=== PATIENT | male | born 1965 | race Caucasian/White ===

== ENCOUNTER → 2018-10-04 | Outpatient (CLI) | payer OTHER ==
[~2018-10-04] MED LIST: AZIT250 PO; BACITO TP; BP MED; CEPH500 PO; CHLO25 PO; CLON.1; CLON.1 PO; CLOP75 PO; CRUTCH4 USE; DICLOFENAC SOD100 G1 TOP; DIPATR PO; FENTANYL PATCH; FOSAMAX; Flexeril5 MG PO; GABA100 PO; HYDACE5 PO; IBUP600 PO; LORA1 PO; LORA2 PO; OXYACE5T PO; OXYACE7.5T PO; OXYCODONE; POTCHL20ER PO; PRED20 PO; PROM25 PO; Prinivil10 MG PO; RANI150 PO; RXOXYACE PO; SILSUL1TC TOP; SULTRIDS PO; VITAMIN D250000 UNIT PO
[2018-10-05 13:35] LABS: Stool Occult Bld Immuno 1 Positive (NEGATIVE)
== END ==
LOC: LAB 16:35 → LAB SHORT 16:35
PROVIDERS: Nurse Practitioner Family
DX: Z12.11 Encounter for screening for malignant neoplasm of colon (principal)
CPT/HCPCS: 82274

== ENCOUNTER 2018-11-08 08:14 | Day surgery (SDC) | payer OTHER ==
[~2018-11-08] VITALS: Ht 177.8 cm; Wt 85.3 kg
[~2018-11-08 08:14] MED LIST changes: +ACET500; +Nortriptyline H75 MG PO; +PREG200 PO; +Robaxin750 MG PO; +TOPI25 PO; +TRAM50 PO
== END 2018-11-08 10:36 | disposition home or self-care (01) ==
LOC: ORSCSDS 08:14
PROVIDERS: Internal Medicine Gastroenterology
PROC: 0DBE8ZX Excision of Large Intestine, Via Natural or Artificial Opening Endoscopic, Diagnostic (ICD-10-PCS; principal; 2018-11-08 09:45)
DX: R19.5 Other fecal abnormalities (principal); Z80.0 Family history of malignant neoplasm of digestive organs; K51.20 Ulcerative (chronic) proctitis without complications; R10.9 Unspecified abdominal pain; K57.30 Diverticulosis of large intestine without perforation or abscess without bleeding; I10 Essential (primary) hypertension; Z87.891 Personal history of nicotine dependence; Z79.01 Long term (current) use of anticoagulants; Z79.899 Other long term (current) drug therapy
CPT/HCPCS: 88305; J2704; J7120

== ENCOUNTER → 2018-12-28 | Outpatient (CLI) | payer OTHER ==
[2018-12-30 14:00] LABS: Stool Occult Bld Immuno 1 Negative (NEGATIVE); Stool Occult Bld Immuno 2 Negative (NEGATIVE)
== END | disposition home or self-care (01) ==
LOC: LAB SHORT 09:52 → LAB 09:52 → LAB FUT 11-25 11:30
PROVIDERS: Internal Medicine Gastroenterology
DX: R19.5 Other fecal abnormalities (principal)
CPT/HCPCS: 82274

== ENCOUNTER → 2019-05-26 | Outpatient (CLI) | payer OTHER ==
[~2019-05-26] MED LIST changes: +Celebrex200 MG PO; +ONDA4ODT
[2019-05-26 11:33] LABS: Bilirubin, Urine Neg (Neg); Blood, Urine Neg (Neg); Glucose Qualitative, Urine Neg (Neg); Ketones, Urine Neg (Neg); Leukocyte Esterase, Urine Neg (Neg); Nitrite, Urine Neg (Neg); Protein, Urine Neg (Neg); Specific Gravity, Urine 1.005 (1.003-1.022); Urobilinogen, Urine NORM (Normal); pH, Urine 6.5 (5.0-8.0)
[2019-05-26 11:59] LABS: Appearance, Urine Clear (Clear); Color, Urine Yellow (P-Yellow)
== END | disposition home or self-care (01) ==
LOC: LAB SHORT 09:20 → LAB 09:20
PROVIDERS: Student in an Organized Health Care Education/Training Program
DX: R82.998 Other abnormal findings in urine (principal)
CPT/HCPCS: 81003

== ENCOUNTER 2019-07-25 13:41 | Day surgery (SDC) | payer OTHER ==
[~2019-07-25] VITALS: Ht 180.3 cm; Wt 86.1 kg
--- NOTE | 2019-07-25 14:47 | NUR ---
07/25/19 1447 Dorothy Zaldivar PT RESTING COMFORTABLY IN BED, SPOUSE AT BEDSIDE. CALL LIGHT WITHIN REACH. PT DENIES NEEDS AT THIS TIME. UPDATED ON POSSIBLE DELAY.
--- NOTE | 2019-07-25 16:30 | NUR ---
07/25/19 1630 Esther Linder GIVEN PO PER ORDERS. PT C/O L FOOT PAIN. ALLERGY TO HYDROCODONE LISTED IN CHART. PT STATES REACTION IS ITCHING. DR STATES OK TO GIVE THIS MEDICATION AND PT WILL USE BENADRYL DIRECTED AT HOME.
== END 2019-07-25 16:58 | disposition home or self-care (01) ==
LOC: ORSCSDS 13:41
PROVIDERS: Podiatrist Foot & Ankle Surgery
PROC: 01BG0ZZ Excision of Tibial Nerve, Open Approach (ICD-10-PCS; principal; 2019-07-25 15:00)
DX: G57.62 Lesion of plantar nerve, left lower limb (principal); I10 Essential (primary) hypertension; B19.20 Unspecified viral hepatitis C without hepatic coma; Z86.73 Personal history of transient ischemic attack (TIA), and cerebral infarction without residual deficits; Z79.01 Long term (current) use of anticoagulants; Z79.899 Other long term (current) drug therapy
CPT/HCPCS: 36415; 85610; 85730; 88304; A9270-GY; J0171; J0690; J1100; J2250; J2405; J2704; J7120

== ENCOUNTER 2020-02-22 00:25 | Day surgery (SDC) | payer OTHER ==
[~2020-02-22 00:25] MED LIST changes: +ACET500 PO; +CELECOXIB200 M1 PO; +GABA300 PO; +Voltaren100 GM
== END 2020-02-22 22:36 | disposition home or self-care (01) ==
LOC: WOUND 00:25
DX: G57.62 Lesion of plantar nerve, left lower limb (principal); T81.31XD Disruption of external operation (surgical) wound, not elsewhere classified, subsequent encounter; I73.9 Peripheral vascular disease, unspecified
CPT/HCPCS: G0463

== ENCOUNTER 2020-03-08 00:27 | Day surgery (SDC) | payer OTHER | END 2020-03-08 22:36 | disposition home or self-care (01) | LOC: WOUND 00:27 | DX: G57.62 Lesion of plantar nerve, left lower limb (principal); T81.31XD Disruption of external operation (surgical) wound, not elsewhere classified, subsequent encounter; I73.9 Peripheral vascular disease, unspecified; I10 Essential (primary) hypertension; Z79.899 Other long term (current) drug therapy ==

== ENCOUNTER 2020-03-14 00:37 | Day surgery (SDC) | payer OTHER | END 2020-03-14 22:41 | disposition home or self-care (01) | LOC: WOUND 00:37 | DX: G57.62 Lesion of plantar nerve, left lower limb (principal); T81.31XD Disruption of external operation (surgical) wound, not elsewhere classified, subsequent encounter; I73.9 Peripheral vascular disease, unspecified ==

== ENCOUNTER 2020-03-23 00:26 | Day surgery (SDC) | payer OTHER | END 2020-03-23 22:41 | disposition home or self-care (01) | LOC: WOUND 00:26 | DX: G57.62 Lesion of plantar nerve, left lower limb (principal); T81.31XD Disruption of external operation (surgical) wound, not elsewhere classified, subsequent encounter; I73.9 Peripheral vascular disease, unspecified; I10 Essential (primary) hypertension; Z79.899 Other long term (current) drug therapy | CPT/HCPCS: G0463 ==

== ENCOUNTER 2020-04-06 00:46 | Day surgery (SDC) | payer OTHER | END 2020-04-06 12:00 | disposition home or self-care (01) | LOC: WOUND 00:46 | DX: G57.62 Lesion of plantar nerve, left lower limb (principal); T81.31XD Disruption of external operation (surgical) wound, not elsewhere classified, subsequent encounter; I73.9 Peripheral vascular disease, unspecified; I10 Essential (primary) hypertension; Z79.899 Other long term (current) drug therapy ==

== ENCOUNTER 2020-04-09 13:18 | Day surgery (SDC) | payer OTHER | END 2020-04-09 22:48 | disposition home or self-care (01) | LOC: WOUND 13:18 | DX: G57.62 Lesion of plantar nerve, left lower limb (principal); T81.31XD Disruption of external operation (surgical) wound, not elsewhere classified, subsequent encounter; I73.9 Peripheral vascular disease, unspecified; I10 Essential (primary) hypertension; Z79.899 Other long term (current) drug therapy | CPT/HCPCS: G0463 ==

== ENCOUNTER 2020-04-13 00:30 | Day surgery (SDC) | payer OTHER | END 2020-04-13 23:02 | disposition home or self-care (01) | LOC: WOUND 00:30 | DX: T81.31XA Disruption of external operation (surgical) wound, not elsewhere classified, initial encounter (principal); I96 Gangrene, not elsewhere classified; I10 Essential (primary) hypertension; M81.0 Age-related osteoporosis without current pathological fracture; E55.9 Vitamin D deficiency, unspecified; F31.9 Bipolar disorder, unspecified; H40.9 Unspecified glaucoma; G47.30 Sleep apnea, unspecified; K74.60 Unspecified cirrhosis of liver; B19.20 Unspecified viral hepatitis C without hepatic coma; M10.9 Gout, unspecified; M19.90 Unspecified osteoarthritis, unspecified site; G62.9 Polyneuropathy, unspecified; Z87.891 Personal history of nicotine dependence; Z86.73 Personal history of transient ischemic attack (TIA), and cerebral infarction without residual deficits; Z88.0 Allergy status to penicillin; Z88.2 Allergy status to sulfonamides; Z88.5 Allergy status to narcotic agent; Z88.8 Allergy status to other drugs, medicaments and biological substances; Z79.02 Long term (current) use of antithrombotics/antiplatelets; Z79.899 Other long term (current) drug therapy; Y83.8 Other surgical procedures as the cause of abnormal reaction of the patient, or of later complication, without mention of misadventure at the time of the procedure; F41.9 Anxiety disorder, unspecified | CPT/HCPCS: G0463 ==

== ENCOUNTER 2020-04-19 00:46 | Day surgery (SDC) | payer OTHER | END 2020-04-19 22:53 | disposition home or self-care (01) | LOC: WOUND 00:46 | DX: G57.62 Lesion of plantar nerve, left lower limb (principal); T81.31XD Disruption of external operation (surgical) wound, not elsewhere classified, subsequent encounter; I73.9 Peripheral vascular disease, unspecified | CPT/HCPCS: G0463 ==

== ENCOUNTER 2020-04-27 01:58 | Day surgery (SDC) | payer OTHER | END 2020-04-27 22:43 | disposition home or self-care (01) | LOC: WOUND 01:58 | DX: T81.31XD Disruption of external operation (surgical) wound, not elsewhere classified, subsequent encounter (principal); G57.62 Lesion of plantar nerve, left lower limb; I73.9 Peripheral vascular disease, unspecified; I10 Essential (primary) hypertension; Z79.899 Other long term (current) drug therapy; Z79.02 Long term (current) use of antithrombotics/antiplatelets | CPT/HCPCS: G0463 ==

== ENCOUNTER 2020-05-04 02:15 | Day surgery (SDC) | payer OTHER | END 2020-05-04 22:57 | disposition home or self-care (01) | LOC: WOUND 02:15 | DX: T81.31XD Disruption of external operation (surgical) wound, not elsewhere classified, subsequent encounter (principal); G57.62 Lesion of plantar nerve, left lower limb; I73.9 Peripheral vascular disease, unspecified; I10 Essential (primary) hypertension; E55.9 Vitamin D deficiency, unspecified; Z79.899 Other long term (current) drug therapy ==

== ENCOUNTER 2020-05-11 01:14 | Day surgery (SDC) | payer OTHER | END 2020-05-11 22:58 | disposition home or self-care (01) | LOC: WOUND 01:14 | DX: T81.31XD Disruption of external operation (surgical) wound, not elsewhere classified, subsequent encounter (principal); G57.62 Lesion of plantar nerve, left lower limb; I73.9 Peripheral vascular disease, unspecified; I10 Essential (primary) hypertension; Z79.02 Long term (current) use of antithrombotics/antiplatelets; Z79.899 Other long term (current) drug therapy | CPT/HCPCS: G0463 ==

== ENCOUNTER 2020-05-15 02:03 | Day surgery (SDC) | payer OTHER | END 2020-05-15 23:09 | disposition home or self-care (01) | LOC: WOUND 02:03 | DX: T81.31XA Disruption of external operation (surgical) wound, not elsewhere classified, initial encounter (principal); L03.116 Cellulitis of left lower limb; M81.0 Age-related osteoporosis without current pathological fracture; B19.20 Unspecified viral hepatitis C without hepatic coma; E55.9 Vitamin D deficiency, unspecified; F31.9 Bipolar disorder, unspecified; Z86.73 Personal history of transient ischemic attack (TIA), and cerebral infarction without residual deficits; Z88.2 Allergy status to sulfonamides; Z88.5 Allergy status to narcotic agent; Z88.8 Allergy status to other drugs, medicaments and biological substances; Y83.8 Other surgical procedures as the cause of abnormal reaction of the patient, or of later complication, without mention of misadventure at the time of the procedure | CPT/HCPCS: 87070; 87077; 87147; 87186; 87205 ==

== ENCOUNTER 2020-05-22 00:52 | Day surgery (SDC) | payer OTHER | END 2020-05-22 23:00 | disposition home or self-care (01) | LOC: WOUND 00:52 | DX: L03.116 Cellulitis of left lower limb (principal); T81.31XD Disruption of external operation (surgical) wound, not elsewhere classified, subsequent encounter; G57.62 Lesion of plantar nerve, left lower limb; I73.9 Peripheral vascular disease, unspecified; I10 Essential (primary) hypertension; Z79.02 Long term (current) use of antithrombotics/antiplatelets; Z79.899 Other long term (current) drug therapy ==

== ENCOUNTER 2020-05-29 00:11 | Day surgery (SDC) | payer OTHER | END 2020-05-29 23:05 | disposition home or self-care (01) | LOC: WOUND 00:11 | DX: T81.31XD Disruption of external operation (surgical) wound, not elsewhere classified, subsequent encounter (principal); L03.116 Cellulitis of left lower limb; G57.62 Lesion of plantar nerve, left lower limb; I73.9 Peripheral vascular disease, unspecified; I10 Essential (primary) hypertension; M81.0 Age-related osteoporosis without current pathological fracture; E55.9 Vitamin D deficiency, unspecified; F31.9 Bipolar disorder, unspecified; H40.9 Unspecified glaucoma; G47.30 Sleep apnea, unspecified; K74.60 Unspecified cirrhosis of liver; B96.20 Unspecified Escherichia coli [E. coli] as the cause of diseases classified elsewhere; M10.9 Gout, unspecified; M19.90 Unspecified osteoarthritis, unspecified site; G62.9 Polyneuropathy, unspecified; Z87.891 Personal history of nicotine dependence; Z88.0 Allergy status to penicillin; Z88.2 Allergy status to sulfonamides; Z88.5 Allergy status to narcotic agent; Z88.8 Allergy status to other drugs, medicaments and biological substances; Z79.02 Long term (current) use of antithrombotics/antiplatelets; Z79.899 Other long term (current) drug therapy; Z86.73 Personal history of transient ischemic attack (TIA), and cerebral infarction without residual deficits; Y83.8 Other surgical procedures as the cause of abnormal reaction of the patient, or of later complication, without mention of misadventure at the time of the procedure | CPT/HCPCS: G0463 ==

== ENCOUNTER 2020-06-19 00:28 | Day surgery (SDC) | payer OTHER | END 2020-06-19 22:37 | disposition home or self-care (01) | LOC: WOUND 00:28 | DX: T81.31XD Disruption of external operation (surgical) wound, not elsewhere classified, subsequent encounter (principal); L03.116 Cellulitis of left lower limb; G57.62 Lesion of plantar nerve, left lower limb; I73.9 Peripheral vascular disease, unspecified; I10 Essential (primary) hypertension; B19.20 Unspecified viral hepatitis C without hepatic coma; M81.0 Age-related osteoporosis without current pathological fracture; E55.9 Vitamin D deficiency, unspecified; F31.9 Bipolar disorder, unspecified; H40.9 Unspecified glaucoma; G47.30 Sleep apnea, unspecified; K74.60 Unspecified cirrhosis of liver; M10.9 Gout, unspecified; M19.90 Unspecified osteoarthritis, unspecified site; G62.9 Polyneuropathy, unspecified; Z86.73 Personal history of transient ischemic attack (TIA), and cerebral infarction without residual deficits; Z79.02 Long term (current) use of antithrombotics/antiplatelets; Z79.899 Other long term (current) drug therapy; Z88.0 Allergy status to penicillin; Z88.2 Allergy status to sulfonamides; Z88.5 Allergy status to narcotic agent; Z88.8 Allergy status to other drugs, medicaments and biological substances; Y83.8 Other surgical procedures as the cause of abnormal reaction of the patient, or of later complication, without mention of misadventure at the time of the procedure | CPT/HCPCS: G0463 ==

== ENCOUNTER 2020-06-25 00:20 | Day surgery (SDC) | payer OTHER | END 2020-06-25 22:49 | disposition home or self-care (01) | LOC: WOUND 00:20 | DX: T81.31XD Disruption of external operation (surgical) wound, not elsewhere classified, subsequent encounter (principal); L03.116 Cellulitis of left lower limb; G57.62 Lesion of plantar nerve, left lower limb; I73.9 Peripheral vascular disease, unspecified; I10 Essential (primary) hypertension; M81.0 Age-related osteoporosis without current pathological fracture; E55.9 Vitamin D deficiency, unspecified; F31.9 Bipolar disorder, unspecified; H40.9 Unspecified glaucoma; G47.30 Sleep apnea, unspecified; K74.60 Unspecified cirrhosis of liver; B19.20 Unspecified viral hepatitis C without hepatic coma; M10.9 Gout, unspecified; M19.90 Unspecified osteoarthritis, unspecified site; G62.9 Polyneuropathy, unspecified; Z79.02 Long term (current) use of antithrombotics/antiplatelets; Z79.899 Other long term (current) drug therapy; Z86.73 Personal history of transient ischemic attack (TIA), and cerebral infarction without residual deficits; Z88.0 Allergy status to penicillin; Z88.2 Allergy status to sulfonamides; Z88.5 Allergy status to narcotic agent; Z88.8 Allergy status to other drugs, medicaments and biological substances; Y83.8 Other surgical procedures as the cause of abnormal reaction of the patient, or of later complication, without mention of misadventure at the time of the procedure | CPT/HCPCS: G0463 ==

== ENCOUNTER 2020-09-16 16:13 | Emergency (ER) | payer OTHER ==
[~2020-09-16] VITALS: Ht 177.8 cm; Wt 95.2 kg
[2020-09-16 16:33] LABS: BASOPHILS ABSOLUTE AUTO 0.02 K/mm3 (0.00-0.23); BASOPHILS PERCENT AUTO 1 % (0-2); EOSINOPHILS ABSOLUTE AUTO 0.16 K/mm3 (0.00-0.68); EOSINOPHILS PERCENT AUTO 4 % (0-6); Hematocrit 39.9 % (37.0-53.0); Hemoglobin 13.2 g/dL (13.5-17.5); IMMATURE GRAN ABSOLUTE AUTO 0.01 K/mm3 (0.00-0.10); IMMATURE GRAN PERCENT AUTO 0 % (0-1); LYMPHOCYTES ABSOLUTE AUTO 1.25 K/mm3 (0.84-5.20); LYMPHOCYTES PERCENT AUTO 31 % (21-46); MONOCYTES ABSOLUTE AUTO 0.36 K/mm3 (0.16-1.47); MONOCYTES PERCENT AUTO 9 % (4-13); Mean Corpuscular HGB 32.5 pg (26.0-34.0); Mean Corpuscular HGB Conc 33.1 g/dL (31.5-36.5); Mean Corpuscular Volume 98 fL (80-100); Mean Platelet Volume 9.2 fL (9.1-12.4); NEUTROPHILS ABSOLUTE AUTO 2.23 K/mm3 (1.96-9.15); NEUTROPHILS PERCENT AUTO 55 % (41-73); Platelet Count 301 K/mm3 (150-400); RDW Coefficient Variation 13.1 % (11.7-14.2); RDW Standard Deviation 46.7 fL (35.1-46.3); Red Blood Cell Count 4.06 M/mm3 (4.30-5.90); White Blood Cell Count 4.03 K/mm3 (4.00-11.30)
[2020-09-16 16:38] LABS: Source, Urine Clean Catch
[2020-09-16] MEDS ORDERED: Percocet 10-321 EACH PO (16:39)
[2020-09-16 16:44] LABS: Appearance, Urine Clear (Clear); Bilirubin, Urine Neg (Neg); Blood, Urine Neg (Neg); Color, Urine Yellow (P-Yellow); Glucose Qualitative, Urine Neg (Neg); Ketones, Urine Neg (Neg); Leukocyte Esterase, Urine Neg (Neg); Nitrite, Urine Neg (Neg); Protein, Urine Neg (Neg); Urobilinogen, Urine NORM (Normal)
[2020-09-16 16:49] LABS: Alanine Aminotransfer (ALT/SGP 37 U/L (12-78); Albumin, Blood 3.9 g/dL (3.4-5.0); Albumin/Globulin Ratio 1.1 (0.8-1.8); Alk Phos 62 U/L (50-136); Anion Gap 5 mmol/L (6-16); Aspartate Aminotrans (AST/SGOT 32 U/L (12-37); Bilirubin, Total 0.2 mg/dL (0.1-1.0); Blood Urea Nitrogen 12 mg/dL (8-24); Bun/Creatinine Ratio 18.6 (12.0-20.0); CO2, Blood 26 mmol/L (21-32); Calcium, Blood 8.6 mg/dL (8.5-10.1); Chloride, Blood 110 mmol/L (98-108); Creatinine, Blood 0.64 mg/dL (0.60-1.20); Ethanol (Alcohol), Blood, Med <3 mg/dL; Globulin, Blood 3.5 g/dL (2.2-4.0); Glomerular Filtration Rate >60 (60-); Glucose, Blood 87 mg/dL (70-99); Salicylate <1.7 mg/dL (2.8-20.0); Sodium, Blood 141 mmol/L (136-145); Total Protein, Blood 7.4 g/dL (6.4-8.2)
[2020-09-16 16:54] LABS: U Amphetamine Screen Not Detected; U Barbituate Screen Not Detected; U Benzodiazapine Screen Not Detected; U Buprenorphine Screen Not Detected; U Cannabinoids Screen Not Detected; U Cocaine Screen Not Detected; U Methadone Screen Not Detected; U Methamphetamine Screen Not Detected; U Opiates Screen Not Detected; U Oxycodone Screen DETECTED; U Phencyclidine Screen Not Detected; U Propoxyphene Screen Not Detected
[2020-09-16 16:55] LABS: Acetaminophen, Random <2.0 ug/mL (10.0-30.0)
[2021-01-28] MEDS ORDERED: GABA300 PO (08:25)
[2021-01-28] MEDS ORDERED: TRAM50 PO (08:26)
[2021-01-28] MEDS ORDERED: PREG200 PO (08:26)
== END 2020-09-16 18:41 | disposition home or self-care (01) ==
LOC: ER 16:13
PROVIDERS: Emergency Medicine
DX: R41.82 Altered mental status, unspecified (principal); I10 Essential (primary) hypertension; Z53.20 Procedure and treatment not carried out because of patient's decision for unspecified reasons; Z79.02 Long term (current) use of antithrombotics/antiplatelets; Z87.891 Personal history of nicotine dependence; Z88.2 Allergy status to sulfonamides; Z88.8 Allergy status to other drugs, medicaments and biological substances; Z79.899 Other long term (current) drug therapy
CPT/HCPCS: 70450; 80053; 81003; 85025; 93005; 93010; 96360; 96361; 99285-25; G0480; J7030

== ENCOUNTER → 2020-11-05 | Outpatient (CLI) | payer OTHER ==
[~2020-11-05] MED LIST changes: +Percocet 10-321 EACH PO
[2020-11-05 18:17] LABS: Adenovirus F 40/41 Not Detected (NOT DETECT); Astrovirus Not Detected (NOT DETECT); Campylobacter Sp Not Detected (NOT DETECT); Cryptosporidium Not Detected (NOT DETECT); Cyclospora Cayetanensis Not Detected (NOT DETECT); E. Coli O157 Not Detected (NOT DETECT); Entamoeba Histolytica Not Detected (NOT DETECT); Enteroaggregative E. coli-EAEC Not Detected (NOT DETECT); Enteropathogenic E. coli-EPEC Not Detected (NOT DETECT); Enterotoxigenic E. coli-ETEC Not Detected (NOT DETECT); Giardia Lamblia Not Detected (NOT DETECT); Norovirus GI/GII Not Detected (NOT DETECT); Plesiomonas Shigelloides Not Detected (NOT DETECT); Rotavirus A Not Detected (NOT DETECT); Salmonella Sp Not Detected (NOT DETECT); Sapovirus Not Detected (NOT DETECT); Shiga Toxin-prod E. coli-STEC Not Detected (NOT DETECT); Shigella/Enteroin E. coli-EIEC Not Detected (NOT DETECT); Vibrio Cholerae Not Detected (NOT DETECT); Vibrio Sp Not Detected (NOT DETECT); Yersinia Enterocolitica Not Detected (NOT DETECT)
[2020-11-06 09:35] LABS: Stool Occult Bld Immuno 1 Positive (NEGATIVE)
== END ==
LOC: LAB 13:30 → LAB SHORT 13:30
PROVIDERS: Student in an Organized Health Care Education/Training Program
DX: R10.32 Left lower quadrant pain (principal); R19.7 Diarrhea, unspecified
CPT/HCPCS: 0097U; 82274; 87324

== ENCOUNTER 2021-02-04 13:28 | Day surgery (SDC) | payer OTHER ==
[~2021-02-04] VITALS: Ht 180.3 cm; Wt 86.9 kg
[2021-02-04] MEDS ORDERED: OXYC10ER (13:53)
[2021-02-04] MEDS ORDERED: OXYC10TA19 PO (13:54)
== END 2021-02-04 15:39 | disposition home or self-care (01) ==
LOC: ORSCSDS 13:28
PROVIDERS: Internal Medicine Gastroenterology
PROC: 0DBP8ZX Excision of Rectum, Via Natural or Artificial Opening Endoscopic, Diagnostic (ICD-10-PCS; principal; 2021-02-04 15:00)
DX: K51.20 Ulcerative (chronic) proctitis without complications (principal)
CPT/HCPCS: 88305; J0330; J0461; J2405; J2704; J7120

== ENCOUNTER 2021-05-23 09:39 | Day surgery (SDC) | payer OTHER ==
[~2021-05-23] VITALS: Ht 177.8 cm; Wt 86.5 kg
[~2021-05-23 09:39] MED LIST changes: +OXYC10ER; +OXYC10TA19 PO
[2021-05-23] MEDS ORDERED: LATANOPROST2.5 M3 (10:23)
[2021-05-23] MEDS ORDERED: TIMO.25OPS (10:23)
[2021-05-23] MEDS ORDERED: Triamcinolone A15 G2 TOP (10:24)
[2021-05-23] MEDS ORDERED: OMEP20ER PO (10:24)
[2021-05-23] MEDS ORDERED: BISA10S PR (10:24)
[2021-05-23] MEDS ORDERED: MORP15ER PO (10:25)
--- NOTE | 2021-05-23 10:34 | NUR ---
05/23/21 1034 Meryl Kelly CALL LIGHT WITHIN REACH. EYE DROPS AT 1020 PLEDGETT AT 1022
== END 2021-05-23 11:55 | disposition home or self-care (01) ==
LOC: ORSCSDS 09:39
PROVIDERS: Ophthalmology
PROC: 08RJ3JZ Replacement of Right Lens with Synthetic Substitute, Percutaneous Approach (ICD-10-PCS; principal; 2021-05-23 11:00)
DX: H25.11 Age-related nuclear cataract, right eye (principal); K21.9 Gastro-esophageal reflux disease without esophagitis; B19.20 Unspecified viral hepatitis C without hepatic coma; Z86.73 Personal history of transient ischemic attack (TIA), and cerebral infarction without residual deficits; F31.9 Bipolar disorder, unspecified; Z79.899 Other long term (current) drug therapy
CPT/HCPCS: J2001; J2250; J3010; J3301; J7040; V2632

== ENCOUNTER 2021-06-13 09:06 | Day surgery (SDC) | payer OTHER ==
[~2021-06-13] VITALS: Ht 177.8 cm; Wt 85.2 kg
[~2021-06-13 09:06] MED LIST changes: +BISA10S PR; +LATANOPROST2.5 M3; +MORP15ER PO; +OMEP20ER PO; +TIMO.25OPS; +Triamcinolone A15 G2 TOP
--- NOTE | 2021-06-13 10:21 | NUR ---
06/13/21 1021 KAREN GRIGGS TETRACAINE DROP INSTILLED AT 1015. PLEDGETT INSERTED AT 1016
== END 2021-06-13 11:56 | disposition home or self-care (01) ==
LOC: ORSCSDS 09:06
PROVIDERS: Ophthalmology
PROC: 08RK3JZ Replacement of Left Lens with Synthetic Substitute, Percutaneous Approach (ICD-10-PCS; principal; 2021-06-13 11:00)
DX: H25.12 Age-related nuclear cataract, left eye (principal); I10 Essential (primary) hypertension; Z87.891 Personal history of nicotine dependence; Z86.73 Personal history of transient ischemic attack (TIA), and cerebral infarction without residual deficits; F31.9 Bipolar disorder, unspecified; Z79.899 Other long term (current) drug therapy; Z79.02 Long term (current) use of antithrombotics/antiplatelets
CPT/HCPCS: J2001; J2250; J3010; J3301; J7040; V2632

== ENCOUNTER → 2022-04-14 | Outpatient (CLI) | payer OTHER ==
[2022-04-18 01:09] LABS: COPPER/CRT RATIO 150 (0-49)
== END | disposition home or self-care (01) ==
LOC: LAB 12:23 → LAB SHORT 12:23 → LAB FUT 12-19 14:55 → EDSTATUS 12-19 14:55
PROVIDERS: Psychiatry & Neurology Neurology
DX: G25.5 Other chorea (principal); F09 Unspecified mental disorder due to known physiological condition
CPT/HCPCS: 81050; 82175; 82525; 82570; 83655; 83825

== ENCOUNTER → 2022-05-01 | Outpatient (CLI) | payer OTHER | END | disposition home or self-care (01) | LOC: LAB SHORT 16:00 → LAB 16:00 | DX: J15.9 Unspecified bacterial pneumonia (principal) | CPT/HCPCS: 87070; 87077; 87186; 87205 ==

== ENCOUNTER → 2022-05-15 | Outpatient (CLI) | payer OTHER ==
[~2022-05-15] MED LIST changes: +ALBU90OI; +BISM300CH; +DOC250; +MESA250ER; +PANT20; +TOPI100
[2022-05-16 13:28] LABS: Adenovirus F 40/41 Not Detected (NOT DETECT); Astrovirus Not Detected (NOT DETECT); Campylobacter Sp Not Detected (NOT DETECT); Cryptosporidium Not Detected (NOT DETECT); Cyclospora Cayetanensis Not Detected (NOT DETECT); E. Coli O157 Not Detected (NOT DETECT); Entamoeba Histolytica Not Detected (NOT DETECT); Enteroaggregative E. coli-EAEC Not Detected (NOT DETECT); Enteropathogenic E. coli-EPEC Not Detected (NOT DETECT); Enterotoxigenic E. coli-ETEC Not Detected (NOT DETECT); Giardia Lamblia Not Detected (NOT DETECT); Norovirus GI/GII Not Detected (NOT DETECT); Plesiomonas Shigelloides Not Detected (NOT DETECT); Rotavirus A Not Detected (NOT DETECT); Salmonella Sp Not Detected (NOT DETECT); Sapovirus Not Detected (NOT DETECT); Shiga Toxin-prod E. coli-STEC Not Detected (NOT DETECT); Shigella/Enteroin E. coli-EIEC Not Detected (NOT DETECT); Vibrio Cholerae Not Detected (NOT DETECT); Vibrio Sp Not Detected (NOT DETECT); Yersinia Enterocolitica Not Detected (NOT DETECT)
== END | disposition home or self-care (01) ==
LOC: LAB SHORT 10:52 → LAB 10:52 → LAB FUT 05-12 10:25
PROVIDERS: Internal Medicine Gastroenterology
DX: R19.7 Diarrhea, unspecified (principal)
CPT/HCPCS: 87507

== ENCOUNTER 2023-12-11 06:31 | Inpatient (IN) | payer OTHER ==
[2023-12-11] VITALS (41 sets, daily range): BP systolic 88–135; BP diastolic 65–92
[~2023-12-11] VITALS: Ht 182.9 cm; Wt 77.8 kg
[~2023-12-11 06:31] MED LIST changes: -BISM300CH; -DOC250; +DOC250 PO; -OXYC10ER; -PANT20; +PANT20 PO; +PEPTO-BISMOL T262 M2 PO; -TOPI100; +TOPI50 PO
[2023-12-11] MEDS ORDERED: LORazepam 2 MG/ML 1ML Injection IV ONE ×5 (07:05→21:00)
[2023-12-11 07:10] LABS: BASOPHILS ABSOLUTE AUTO 0.03 K/mm3 (0.00-0.23); BASOPHILS PERCENT AUTO 1 % (0-2); EOSINOPHILS PERCENT AUTO 0 % (0-6); Hematocrit 39.3 % (37.0-53.0); Hemoglobin 13.2 g/dL (13.5-17.5); IMMATURE GRAN ABSOLUTE AUTO 0.03 K/mm3 (0.00-0.10); IMMATURE GRAN PERCENT AUTO 1 % (0-1); LYMPHOCYTES ABSOLUTE AUTO 0.51 K/mm3 (0.84-5.20); LYMPHOCYTES PERCENT AUTO 8 % (21-46); MONOCYTES PERCENT AUTO 6 % (4-13); Mean Corpuscular HGB 34.8 pg (26.0-34.0); Mean Corpuscular HGB Conc 33.6 g/dL (31.5-36.5); Mean Corpuscular Volume 104 fL (80-100); Mean Platelet Volume 9.2 fL (9.1-12.4); NEUTROPHILS PERCENT AUTO 85 % (41-73); Platelet Count 147 K/mm3 (150-400); RDW Coefficient Variation 13.3 % (11.7-14.2); RDW Standard Deviation 50.4 fL (35.1-46.3); Red Blood Cell Count 3.79 M/mm3 (4.30-5.90); White Blood Cell Count 6.47 K/mm3 (4.00-11.30)
[2023-12-11] MEDS ORDERED: NS 1,000 ML IV SCH (07:15)
[2023-12-11 07:31] LABS: Alanine Aminotransfer (ALT/SGP 117 U/L (12-78); Albumin, Blood 3.8 g/dL (3.4-5.0); Alk Phos 85 U/L (50-136); Anion Gap 16 mmol/L (3-11); Aspartate Aminotrans (AST/SGOT 114 U/L (12-37); Blood Urea Nitrogen 15 mg/dL (8-24); Bun/Creatinine Ratio 21.5 (12.0-20.0); CO2, Blood 23 mmol/L (21-32); Calcium, Blood 9.6 mg/dL (8.5-10.1); Chloride, Blood 103 mmol/L (98-108); Ethanol (Alcohol), Blood, Med <3 mg/dL; Glomerular Filtration Rate 105 (60-); Glucose, Blood 197 mg/dL (70-99); Potassium, Blood 3.7 mmol/L (3.5-5.5); Sodium, Blood 138 mmol/L (136-145); Total Protein, Blood 7.8 g/dL (6.4-8.2)
[2023-12-11] MEDS ORDERED: PHENobarbital Sodium 65MG / ML 1ML Vial IV ONE ×2 (07:35→10:00)
[2023-12-11] MEDS ORDERED: propofoL 100 ML IV SCH (09:20)
[2023-12-11] MEDS ORDERED: SuccINYLCHOLINE Chloride 20 MG/ML 10ML Injection IV ONE (09:25)
[2023-12-11] MEDS ORDERED: PROPOFOL IV ONE (09:30)
[2023-12-11] MEDS ORDERED: PHENobarbitaL sodium 130 MG/ML VIAL IV ONE (10:10)
[2023-12-11 11:17] LABS: U Amphetamine Screen Not Detected; U Barbituate Screen DETECTED; U Benzodiazapine Screen DETECTED; U Buprenorphine Screen Not Detected; U Cannabinoids Screen Not Detected; U Cocaine Screen Not Detected; U Methadone Screen Not Detected; U Methamphetamine Screen Not Detected; U Opiates Screen Not Detected; U Oxycodone Screen Not Detected; U Phencyclidine Screen Not Detected
[2023-12-11] MEDS ORDERED: Acetaminophen 650 MG Supp PR PRN (11:35)
[2023-12-11] MEDS ORDERED: Lactated Ringer's 1,000 ML IV SCH ×2 (11:35→14:20)
[2023-12-11] MEDS ORDERED: Folic Acid 1 MG in NS 50 ML IV SCH (12:00)
[2023-12-11] MEDS ORDERED: Thiamine HCl 100 MG in NS 50 ML IV SCH (12:00)
[2023-12-11] MEDS ORDERED: LORazepam 2 MG/ML 1ML Injection IV PRN (14:15)
[2023-12-11] MEDS ORDERED: Potassium Phosphate Dibasic 30 MM in Dextrose 5% 500 ML IV STA (14:18)
[2023-12-11] MEDS ORDERED: Hydrogen Peroxide 1.5 % Solution MT SCH (16:00)
--- NOTE | 2023-12-11 18:52 | NUR ---
SHIFT SUMMARY PT ARRIVED FROM ER VIA GURNEY AT 1255. INTUBATED AND SEDATED, PROPOFOL INFUSING. SR, BP WNL. VENT AC/VC 16/400/5/35%. LUNGS CLEAR, DIMINISHED LEFT SIDE. OGT CLAMPED. SEN TO GRAVITY, PATENT AND DRAINING CLEAR YELLOW URINE. SKIN WITH BRUISING TO RIGHT KNEE AND FOOT, RIGHT GREAT TOE FX NOTED ON XRAY. PIV X2, PROPOFOL INFUSING. POTASSIUM AND PHOS BEING REPLACED. UPDATED VIA PHONE. ALL QUESTIONS ANSWERED. DR. HERNANDEZ TO BEDSIDE AFTER PULM CONSULT PLACED. POC ONGOING.
[2023-12-11] MEDS ORDERED: Sodium Phosphate 20 MM in Dextrose 5% 500 ML IV SCH (19:30)
[2023-12-11] MEDS ORDERED: Cetylpyridinium Chloride 1 EA MISC MT SCH (20:00)
[2023-12-11 20:08] LABS: Source, Urine Foley catheter
[2023-12-11 20:12] LABS: Appearance, Urine Clear (Clear); Bilirubin, Urine Neg (Neg); Blood, Urine 3+ (Neg); Color, Urine Amber (P-Yellow); Glucose Qualitative, Urine Neg (Neg); Ketones, Urine Neg (Neg); Leukocyte Esterase, Urine Neg (Neg); Nitrite, Urine Neg (Neg); Protein, Urine 2+ (Neg); Specific Gravity, Urine 1.015 (1.003-1.022); Urobilinogen, Urine NORM (Normal)
[2023-12-11 20:19] LABS: Squamous Epithelial Cells Rare /hpf (Few); White Blood Cells, Urine 0-2 /hpf (0-5)
[2023-12-11 20:20] LABS: Bacteria Mod /hpf
[2023-12-12] VITALS (86 sets, daily range): BP systolic 95–121; BP diastolic 73–105
[2023-12-12 03:31] LABS: BASOPHILS ABSOLUTE AUTO 0.03 K/mm3 (0.00-0.23); BASOPHILS PERCENT AUTO 1 % (0-2); EOSINOPHILS ABSOLUTE AUTO 0.12 K/mm3 (0.00-0.68); EOSINOPHILS PERCENT AUTO 2 % (0-6); Hematocrit 36.6 % (37.0-53.0); IMMATURE GRAN ABSOLUTE AUTO 0.02 K/mm3 (0.00-0.10); IMMATURE GRAN PERCENT AUTO 0 % (0-1); LYMPHOCYTES ABSOLUTE AUTO 0.79 K/mm3 (0.84-5.20); LYMPHOCYTES PERCENT AUTO 16 % (21-46); MONOCYTES ABSOLUTE AUTO 0.33 K/mm3 (0.16-1.47); MONOCYTES PERCENT AUTO 7 % (4-13); Mean Corpuscular HGB 34.5 pg (26.0-34.0); Mean Corpuscular HGB Conc 32.8 g/dL (31.5-36.5); Mean Corpuscular Volume 105 fL (80-100); Mean Platelet Volume 9.5 fL (9.1-12.4); NEUTROPHILS ABSOLUTE AUTO 3.73 K/mm3 (1.96-9.15); NEUTROPHILS PERCENT AUTO 74 % (41-73); Platelet Count 127 K/mm3 (150-400); RDW Coefficient Variation 13.2 % (11.7-14.2); RDW Standard Deviation 50.9 fL (35.1-46.3); Red Blood Cell Count 3.48 M/mm3 (4.30-5.90); White Blood Cell Count 5.02 K/mm3 (4.00-11.30)
[2023-12-12 03:53] LABS: Magnesium, Blood 2.5 mg/dL (1.6-2.4)
[2023-12-12 04:07] LABS: Albumin, Blood 3.1 g/dL (3.4-5.0); Albumin/Globulin Ratio 0.9 (0.8-1.8); Bilirubin, Total 1.4 mg/dL (0.1-1.0); Bun/Creatinine Ratio 13.9 (12.0-20.0); Calcium, Blood 8.6 mg/dL (8.5-10.1); Creatinine, Blood 0.72 mg/dL (0.60-1.20); Globulin, Blood 3.4 g/dL (2.2-4.0); Potassium, Blood 2.8 mmol/L (3.5-5.5); Total Protein, Blood 6.5 g/dL (6.4-8.2)
[2023-12-12 04:13] LABS: Phosphorus, Blood 5.2 mg/dL (2.5-4.9)
[2023-12-12] MEDS ORDERED: Potassium Chloride 40 MEQ in NS 250 ML IV ONE (04:50)
--- NOTE | 2023-12-12 05:35 | NUR ---
SHIFT SUMMERY PT REMAINS INTUBATED W/ETT INTACT AND PATENT TO THE VENT. OXYGEN SAT >90% W/NO EPISODES OF RESP DISTRESS OVERNIGHT. MINIMAL SECRETIONS FROM IN LINE SUCTIONING OF ETT. PT HAS BEEN SR ON THE CYBER ENGINEER. BP WNL. AFEBRILE. SEDATION W/PROPOFOL, SEE FLOWSHEET. PT WAS AGITATED AT TIMES, ATIVAN GIVEN PER MD ORDER FOR ETOH W/DRAWAL. SEN CATH INTACT PATENT AND DRAINING TO GRAVITY. PT DOES COUGH OCCASIONALLY, HE DOES NOT FOLLOW COMMANDS AT THIS TIME. THERE HAVE BEEN NO ACUTE CHANGES TO PT PLAN OF CARE OVERNIGHT. PT CALLED AND WAS UPDATED ON PT STATUS.
[2023-12-12] MEDS ORDERED: Pantoprazole Sodium 40 MG Injection IV SCH (06:00)
[2023-12-12] MEDS ORDERED: Enoxaparin 40 MG/0.4 ML SYR SC SCH (09:00)
[2023-12-12] MEDS ORDERED: Potassium Chl 20MEQ/Water100ML 100 ML IV STA (10:59)
[2023-12-12] MEDS ORDERED: Lactated Ringer's 1,000 ML IV SCH (13:05)
--- NOTE | 2023-12-12 15:32 | NUR ---
SHIFT SUMMARY SEDATED, PROPOFOL INFUSING, IV ATIVAN 4MG X1. SR, BP WNL. VENT SETTINGS UNCHANGED. MINIMAL RESP SECRETIONS, TOLERATES MOUTH CARE WELL. OGT, TF STARTED, JEVITY 1.2 AT 30 ML/HR, 30 ML H20 FLUSH EVERY 4 HOURS. SEN PATENT AND DRAINING DOROTEO URINE WITH SEDIMENT, UO DECREASING, MD NOTIFIED, CONTINUE TO MONITOR. SKIN UNCHANGED, BRUISING AND DISCOLORATION NOTED TO RIGHT KNEE AND RIGHT FOOT. PIV X2 RIGHT FOREARM, BOTH INFUSING. NO FAMILY AT BEDSIDE. CALLED FROM [facility] WHERE SHE IS CURRENTLY RECOVERING FROM SURGERY, DAUGHTER CALLED FOR UPDATE. ATTEMPTED TO GO OVER ADMISSION HISTORY WITH SPOUSE, SHE IS UNABLE DUE TO SOB AND "FEELING SPACEY" BUT AGREES TO TRY AGAIN TOMORROW. ABD US ORDERED DUE TO ELEVATED LIVER ENZYMES, NOT YET COMPLETED. POC ONGOING.
[2023-12-13] VITALS (58 sets, daily range): BP systolic 106–151; BP diastolic 70–102
[2023-12-13 03:29] LABS: BASOPHILS ABSOLUTE AUTO 0.03 K/mm3 (0.00-0.23); BASOPHILS PERCENT AUTO 1 % (0-2); EOSINOPHILS ABSOLUTE AUTO 0.16 K/mm3 (0.00-0.68); EOSINOPHILS PERCENT AUTO 3 % (0-6); Hematocrit 36.3 % (37.0-53.0); Hemoglobin 11.8 g/dL (13.5-17.5); IMMATURE GRAN ABSOLUTE AUTO 0.02 K/mm3 (0.00-0.10); IMMATURE GRAN PERCENT AUTO 0 % (0-1); LYMPHOCYTES ABSOLUTE AUTO 0.72 K/mm3 (0.84-5.20); LYMPHOCYTES PERCENT AUTO 14 % (21-46); MONOCYTES PERCENT AUTO 11 % (4-13); Mean Corpuscular HGB 34.9 pg (26.0-34.0); Mean Corpuscular HGB Conc 32.5 g/dL (31.5-36.5); Mean Corpuscular Volume 107 fL (80-100); NEUTROPHILS ABSOLUTE AUTO 3.82 K/mm3 (1.96-9.15); NEUTROPHILS PERCENT AUTO 71 % (41-73); Platelet Count 129 K/mm3 (150-400); RDW Coefficient Variation 13.1 % (11.7-14.2); RDW Standard Deviation 52.2 fL (35.1-46.3); Red Blood Cell Count 3.38 M/mm3 (4.30-5.90); White Blood Cell Count 5.35 K/mm3 (4.00-11.30)
[2023-12-13 03:46] LABS: Albumin, Blood 2.8 g/dL (3.4-5.0); Albumin/Globulin Ratio 0.8 (0.8-1.8); Bun/Creatinine Ratio 18.2 (12.0-20.0); Calcium, Blood 8.7 mg/dL (8.5-10.1); Creatinine, Blood 0.61 mg/dL (0.60-1.20); Globulin, Blood 3.4 g/dL (2.2-4.0); Magnesium, Blood 1.8 mg/dL (1.6-2.4); Phosphorus, Blood 3.3 mg/dL (2.5-4.9); Potassium, Blood 3.3 mmol/L (3.5-5.5); Total Protein, Blood 6.2 g/dL (6.4-8.2)
--- NOTE | 2023-12-13 05:32 | NUR ---
SHIFT SUMMERY PT REMAINS INTUBATED W/ETT INTACT AND PATENT TO THE VENT. PT HAS COUGHED W/MORE SPUTUM SUCTIONED IN LINE THAN THE NIGHT PRIOR. COLOR IS MORE YELLOW NOW WELL. PT IS ON PROPOFOL FOR SEDATION, SEE FLOWSHEET. ATIVAN PRN WELL. PT HAS BECAME VERY AGITATED AT TIMES, RAISING UP OUT OF BED AND PULLING ON RESTRAINTS. HE HAS NOT FOLLOWED COMMANDS OR OPENED HIS EYES TO TRACK ME OR MY VOICE. HE HAS HAD A LARGE AMOUNT OF BROWN LIQUID STOOL OVERNIGHT, RECTAL TUBE WAS PLACED W/OUT DIFFICULTY. PT HAS BEEN AFEBRILE. SR ON THE TECHNICAL MANAGER W/BP WNL.
[2023-12-13] MEDS ORDERED: Potassium Chloride 40 MEQ in NS 250 ML IV ONE (07:40)
[2023-12-13 10:27] LABS: C DIFFICILE DNA NEGATIVE (Negative)
--- NOTE | 2023-12-13 17:19 | NUR ---
SUMMARY PT INTUBATED AND SEDATED WITH PROPOFOL. SEDATION VACATION TODAY. PT BECOMES TACHYPNEIC, HR INCREASES, INCREASED COUGHING, SITTING UP IN BED, AND NOT FOLLOWING COMMANDS. PLACED BACK ON SEDATION. HAVING COPIOUS AMT OF YELLOW SECRETIONS FROM ETT. NO OTHER CHANGES THIS SHIFT. * WEDDING RING TAKEN OFF AND PLACED IN LOCK BOX D/T FINGER SWELLING. WILL BE IN TOMORROW.
[2023-12-13] MEDS ORDERED: Lactobacil 2-S.Thermo-Bifido 1 1 Cap PO SCH (21:00)
[2023-12-14] VITALS (95 sets, daily range): BP systolic 56–168; BP diastolic 43–112
[2023-12-14] MEDS ORDERED: Acetaminophen 160MG / 5ML 10.15 UDC PT PRN (03:20)
[2023-12-14 03:48] LABS: Albumin, Blood 2.7 g/dL (3.4-5.0); Albumin/Globulin Ratio 0.7 (0.8-1.8); Bilirubin, Total 0.9 mg/dL (0.1-1.0); Bun/Creatinine Ratio 10.2 (12.0-20.0); Calcium, Blood 8.5 mg/dL (8.5-10.1); Creatinine, Blood 0.89 mg/dL (0.60-1.20); Globulin, Blood 3.8 g/dL (2.2-4.0); Magnesium, Blood 1.9 mg/dL (1.6-2.4); Potassium, Blood 3.2 mmol/L (3.5-5.5); Total Protein, Blood 6.5 g/dL (6.4-8.2)
[2023-12-14] MEDS ORDERED: Potassium Chloride 40 MEQ in NS 250 ML IV ONE ×2 (04:55→17:20)
--- NOTE | 2023-12-14 06:09 | NUR ---
SHIFT SUMMERY PT REMAINS INTUBATED W/ETT INTACT AND PATENT TO THE VENT. OXYGEN SAT >90%. FREQUENT COUGHING W/LARGE AMOUNT OF DE LA CRUZ THICK SPUTUM IN LINE. PT BECAME FEBRILE W/TEMP MAX 102.7. TYLENOL GIVEN AND FEVER REDUCED TO 100. SPUTUM SAMPLE SENT TO LAB YESTERDAY ON DAY SHIFT. SEN CATH INTACT PATENT AND DRAINING TEA COLORED URINE TO GRAVITY. TF AT GOAL INFUSING VIA OG TUBE. RECTAL TUBE DRAINING BROWN LIQUID STOOL TO GRAVITY. PT HAS BEEN ST ON THE BILINGUAL RESEARCH INTERVIEWER W/BP WNL.
--- NOTE | 2023-12-14 07:00 | NUR ---
ASSUME CARE: I have assumed care of this patient.
--- NOTE | 2023-12-14 07:55 | NUR ---
FAMILY UPDATE: Pt's provided update via telephone.
--- NOTE | 2023-12-14 09:03 | NUR ---
LAST MEAL/MEDS: Pt reports his last meal was three days ago. He also states this was the last time he took is plavix or elequis. He was taking sips of water up until his arrival to the ICU at 0755.
[2023-12-14] MEDS ORDERED: Potassium Phosphate Dibasic 20 MM in Dextrose 5% 500 ML IV SCH (10:00)
--- NOTE | 2023-12-14 13:17 | NUR ---
PROVIDER UPDATE: Dr Shields notified of pt's status; continued hyperthermia, tachycardia and tachypnia. RN instructed to restart sedation until pt becomes normothermic.
[2023-12-14] MEDS ORDERED: Ibuprofen 400 MG Tab PT PRN (15:30)
[2023-12-14] MEDS ORDERED: Lactated Ringer's 1,000 ML IV SCH ×2 (15:35→16:00)
[2023-12-14] MEDS ORDERED: Ibuprofen 600 MG Tab PT PRN (15:41)
[2023-12-14] MEDS ORDERED: Ibuprofen 100 MG/5 ML 5ML UDC PT PRN (15:55)
[2023-12-14 16:18] LABS: BASOPHILS ABSOLUTE AUTO 0.03 K/mm3 (0.00-0.23); BASOPHILS PERCENT AUTO 0 % (0-2); EOSINOPHILS PERCENT AUTO 0 % (0-6); Hematocrit 37.3 % (37.0-53.0); Hemoglobin 12.6 g/dL (13.5-17.5); IMMATURE GRAN ABSOLUTE AUTO 0.08 K/mm3 (0.00-0.10); IMMATURE GRAN PERCENT AUTO 1 % (0-1); LYMPHOCYTES ABSOLUTE AUTO 0.68 K/mm3 (0.84-5.20); LYMPHOCYTES PERCENT AUTO 7 % (21-46); MONOCYTES ABSOLUTE AUTO 0.99 K/mm3 (0.16-1.47); MONOCYTES PERCENT AUTO 11 % (4-13); Mean Corpuscular HGB 35.1 pg (26.0-34.0); Mean Corpuscular HGB Conc 33.8 g/dL (31.5-36.5); Mean Corpuscular Volume 104 fL (80-100); Mean Platelet Volume 9.4 fL (9.1-12.4); NEUTROPHILS ABSOLUTE AUTO 7.62 K/mm3 (1.96-9.15); NEUTROPHILS PERCENT AUTO 81 % (41-73); Platelet Count 155 K/mm3 (150-400); RDW Standard Deviation 49.7 fL (35.1-46.3); Red Blood Cell Count 3.59 M/mm3 (4.30-5.90)
[2023-12-14 16:22] LABS: Base Excess Venous 6.4 mmol/L; Bicarbonate Venous 29.3 mmol/L (24.0-30.0); PCO2 Venous 39.6 mmHg (38-42); pH Blood Venous 7.48 (7.34-7.37)
[2023-12-14 16:44] LABS: Albumin, Blood 2.6 g/dL (3.4-5.0); Albumin/Globulin Ratio 0.6 (0.8-1.8); Bilirubin, Total 1.3 mg/dL (0.1-1.0); Calcium, Blood 8.1 mg/dL (8.5-10.1); Creatinine, Blood 0.89 mg/dL (0.60-1.20); Globulin, Blood 4.1 g/dL (2.2-4.0); Potassium, Blood 2.9 mmol/L (3.5-5.5); Total Protein, Blood 6.7 g/dL (6.4-8.2)
--- NOTE | 2023-12-14 16:47 | NUR ---
Titration of sedation per Dr Cornelius Shields asked to have the propofol back to what this am dose was... current dose 20mcg and titrated back to 60mcg. And he also wanted 4 mg of Lorazepam IV now. Dr Shields was updated on patients Vital Signs; high heart rate and fever climbing again. Tmax 105.5 currently. Core Temp.
[2023-12-14] MEDS ORDERED: ChlordiazePOXIDE 25 MG Cap PT ONE (17:00)
[2023-12-14] MEDS ORDERED: Potassium Chloride 40 MEQ in NS 250 ML IV STA (17:24)
--- NOTE | 2023-12-14 18:02 | NUR ---
PROVIDER UPDATE: Dr Shields notified of pt's BP trending downward.
--- NOTE | 2023-12-14 19:00 | NUR ---
ASSUMPTION OF CARE ASSUMED CARE OF PT AT 1900, BEDSIDE SHIFT REPORT RECEIVED FROM NAYE RN. PT RESTING IN BED, INTUBATED AND SEDATED. PROPOFOL INFUSING AT 40MCG/KG/MIN, PT DOES NOT WITHDRAW EXTREMITIES TO NOXIOUS STIMULI, NO PURPOSEFUL MOVEMENTS NOTED. PT DOES HAVE POSITIVE CORNEAL RELFEX, NEGATIVE DOLLS EYES NOTED. NO GAG REFLEX, NONPRODUCTIVE COUGH NOTED. SCLERAL EDEMA NOTED TO RIGHT EYES, DOWNWARD GAZE NOTED TO LEFT EYE. PUPILS EQUAL AND REACTIVE TO LIGHT. TEMPERATURE ON ASSESSMENT 102.4, ICE PACKS, COOL WASHCLOTHS, FAN AND COOLING BLANKETS IN PLACE. HR 100-110'S SINUS, LEVOPHED INFUSING AT 6MCG/MIN TO MAINTAIN MAP >65. VENT SETTINGS AC/VC 16/400/5/30%, OXYGEN SATURATION >95%. ABDOMEN SOFT AND ROUND. OG TUBE IN PLACE INFUSING JEVITY 1.2 AT GOAL OF 30MLS/HR WITH 30ML Q4H WATER FLUSH. RECTAL TUBE IN PLACE WITH LIQUID BORWN OUTPOUT. TEMP SEN IN PLACE WITH DOROTEO/YELLOW COLORED OUTPUT. PIV IN PLACE TO LAC, RIGHT WRIST, AND LEFT FOREARM. LR INFUSING AT 200MLS/HR. BED IN LOWEST POSITION, CARE CONTINUES.
--- NOTE | 2023-12-14 19:20 | NUR ---
SHIFT SUMMARY: Tmax 106 today. Pt received two doses of PRN tylenol and one of PRN ibuprofen. Cooling blanked and ice packs were applied. Blood cultures drawn and vancomycin started. Pt's HR and regidity of limbs improved with PRN lorazepam 4mg. Librium 50mg also given. Levophed was started peripherally in new PIV for hypotension. Good UOP, melodie colored. Pt did not respond purposfully with sedation vacation. Pt's left eye is questionablly disconjugate with a lower gaze than right. PERRLA. Positive corneals, occulocephalics, cough, and gag. received update via telephone this AM.
[2023-12-14] MEDS ORDERED: Potassium Chloride 20 MEQ TabCR PT ONE (21:30)
--- NOTE | 2023-12-14 21:30 | NUR ---
PT UPDATE DR. HERNANDEZ CALLED, UPDATED HIM ON PT CONDITION INCLUDING MENTATION, CONSITING OF NO GAG AND NO RESPONSE TO NOXIOUS STIMULI. ALSO UPDATED ON CURRENT VITALS AND PRESSOR REQUIREMENTS. ORDERS RECEIVED, CARE CONTINUES.
[2023-12-14] MEDS ORDERED: Piperacillin/Tazobactam Sod 4.5 GM in NS 100 ML IV ONE (21:55)
[2023-12-14] MEDS ORDERED: Vancomycin HCL 1,250 MG in NS 250 ML IV SCH (22:00)
--- NOTE | 2023-12-14 22:00 | NUR ---
PT UPDATE DR. MENA TO BEDSIDE TO ASSESS PT AT 2100. CENTRAL LINE PLACED TO RIJ, NOT IN GOOD POSITION, CENTRAL LINE PLACED TO RIGHT FEMORAL, VERIFIED ON X-RAY. CARE CONTINUES.
[2023-12-14] MEDS ORDERED: Potassium Chloride 20 MEQ/15 ML UDC PT ONE (22:25)
[2023-12-14] MEDS ORDERED: Vasopressin 20 UNITS in NS 100 ML IV SCH (22:40)
[2023-12-14] MEDS ORDERED: NS 250 ML IV PRN (22:50)
[2023-12-15] VITALS (98 sets, daily range): BP systolic 60–146; BP diastolic 22–120
--- NOTE | 2023-12-15 02:51 | NUR ---
UPDATE MISPLACED CENTRAL LINE TO RIJ REMOVED AND PRESSURE HELD. PETROLIUM GAUZE AND FOLDED 4X4 PLACED UNDER TEGADERM. PT TOLERATED WELL; VERY SMALL AMOUNT OF BLEEDING.
[2023-12-15 03:27] LABS: PCO2 Arterial 31.8 mmHg (35-45); PO2 Arterial 56.3 mmHg (80-100); pH Blood Arterial 7.42 (7.35-7.45)
[2023-12-15 05:01] LABS: Base Excess Venous -7.9 mmol/L; Bicarbonate Venous 18.6 mmol/L (24.0-30.0); PCO2 Venous 36.8 mmHg (38-42); pH Blood Venous 7.31 (7.34-7.37)
[2023-12-15 05:26] LABS: Hemoglobin 12.6 g/dL (13.5-17.5); Mean Corpuscular HGB 35.7 pg (26.0-34.0); Mean Corpuscular HGB Conc 32.3 g/dL (31.5-36.5); Mean Platelet Volume 10.4 fL (9.1-12.4); Platelet Count 130 K/mm3 (150-400); RDW Coefficient Variation 13.2 % (11.7-14.2); RDW Standard Deviation 54.5 fL (35.1-46.3); Red Blood Cell Count 3.53 M/mm3 (4.30-5.90); White Blood Cell Count 16.45 K/mm3 (4.00-11.30)
[2023-12-15 05:41] LABS: Mean Corpuscular Volume 111 fL (80-100)
[2023-12-15] MEDS ORDERED: Hydrocortisone Sod Succinate 100 MG Vial IV SCH (06:00)
[2023-12-15] MEDS ORDERED: Piperacillin/Tazobactam Sod 4.5 GM in NS 100 ML IV SCH (06:00)
[2023-12-15 06:19] LABS: BAND PERCENT MAN 11 % (0-8); BASOPHILS PERCENT MAN 0 % (0-2); EOSINOPHILS PERCENT MAN 0 % (0-6); LYMPHOCYTES ABSOLUTE MAN 1.64 K/mm3 (0.84-5.20); LYMPHOCYTES PERCENT MAN 10 % (21-46); METAMYELOCYTE ABSOLUTE MAN 0.16 K/mm3 (0.00-0.00); METAMYELOCYTE PERCENT MAN 1 % (0-0); MONOCYTES ABSOLUTE MAN 2.13 K/mm3 (0.16-1.47); MONOCYTES PERCENT MAN 13 % (4-13); MYELOCYTE ABSOLUTE MAN 0.16 K/mm3 (0.00-0.00); MYELOCYTE PERCENT MAN 1 % (0-0); NEUTROPHILS ABSOLUTE MAN 12.33 K/mm3 (1.96-9.15); SEG NEUTROPHILS PERCENT MAN 64 % (41-73); TOTAL CELLS COUNTED 100
[2023-12-15 06:25] LABS: Magnesium, Blood 1.4 mg/dL (1.6-2.4)
--- NOTE | 2023-12-15 06:32 | NUR ---
SHIFT SUMMARY PT RESTING IN BED, CONTINUES TO BE INTUBATED AND SEDATED. PROPOFOL INFUSING AT 40MCG/KG/MIN. PT DOES NOT RESPOND TO NOXIOUS STIMULI, NO GAG NOTED, NEGATIVE DOLLS EYES. PT DOES HAVE INTACT COUGH AND CORNEAL REFLEX. SCLERAL EDEMA NOTED TO RIGHT EYE, DOWNWARD GAZE NOTED TO LEFT EYE. TMAX OF 102.4 THIS SHIFT, CURRENT TEMP 100.0, FANS IN PLACE. HR 100-110'S SINUS, LEVOPHED INFUSING AT 24MCG/MIN WELL VASOPRESSIN TO MAINTAIN MAP >65. VENT SETTINGS AC/VC 16/400/5/40%, OXYGEN SATURATION >95%. ABDOMEN SOFT AND ROUND, BOWEL TONES ACTIVE IN ALL FOUR QUADRANTS. OG TUBE IN PLACE WITH JEVITY 1.2 INFUSING AT 30MLS/HR WHICH IS GOAL WITH 30ML Q4H WATER FLUSH. RECTAL TUBE IN PLACE WITH LIQUID BROWN OUTPUT NOTED. TEMP SEN IN PLACE WITH DOROTEO COLORED OUTPUT. CENTRAL LINE IN PLACE TO RIGHT FEMORAL. PIV IN PLACE TO LAC AND LEFT WRIST SL. BED IN LOWEST POSITION, CARE CONTINUES.
[2023-12-15 06:38] LABS: Albumin/Globulin Ratio 0.5 (0.8-1.8); Bilirubin, Total 1.6 mg/dL (0.1-1.0); Bun/Creatinine Ratio 12.6 (12.0-20.0); Creatinine, Blood 1.43 mg/dL (0.60-1.20); Globulin, Blood 3.8 g/dL (2.2-4.0); Phosphorus, Blood 5.6 mg/dL (2.5-4.9); Potassium, Blood 3.7 mmol/L (3.5-5.5); Total Protein, Blood 5.8 g/dL (6.4-8.2)
[2023-12-15] MEDS ORDERED: Pantoprazole Sodium 40 MG Injection IV SCH (09:00)
[2023-12-15] MEDS ORDERED: CefTRIAXone Sodium 1,000 MG in NS 100 ML IV SCH (09:00)
[2023-12-15] MEDS ORDERED: Magnesium Sulf 2 GM/Water 50ML 50 ML IV ONE (09:00)
[2023-12-15] MEDS ORDERED: Thiamine HCl 100 MG in NS 50 ML IV SCH (09:00)
[2023-12-15] MEDS ORDERED: Folic Acid 1 MG in NS 50 ML IV SCH (09:00)
[2023-12-15] MEDS ORDERED: FentaNYL Citrate 50 MCG/ML 2 ML Injection IV PRN (09:10)
[2023-12-15 12:30] LABS: PCO2 Venous 43.1 mmHg (38-42); pH Blood Venous 7.31 (7.34-7.37)
[2023-12-15 12:31] LABS: Base Excess Venous -4.5 mmol/L; Bicarbonate Venous 19.8 mmol/L (24.0-30.0)
[2023-12-15 12:55] LABS: Bun/Creatinine Ratio 12.3 (12.0-20.0); Calcium, Blood 7.5 mg/dL (8.5-10.1); Creatinine, Blood 1.38 mg/dL (0.60-1.20); Magnesium, Blood 2.9 mg/dL (1.6-2.4)
--- NOTE | 2023-12-15 16:52 | NUR ---
Spiritual Care Attempt. Pt. is intubated and mostly not respnsive. No family are present at bedside. Since a Spiritual Care referral was made by the Pt. This Calibration Checker prayed for the Pt. at bedside. Will remain available to the Pt. and/or family.
--- NOTE | 2023-12-15 18:36 | NUR ---
Summary. Pt remained in bed during shift. Vasopressin on standby, levophed down to 6 mcg/min. Propofol 20 mcg/kg/min. Sedation vacation completed this shift, patient able to squeeze hands and wiggle toes, no other commands followed. Abdominal ultrasound and repeat echocardiogram completed this shift. No acute events this shift, see chart for further details.
--- NOTE | 2023-12-15 19:00 | NUR ---
ASSUMED CARE OF PATIENT AT 1900. REPORT RECEIVED FROM STEFANIE MONOTYA. PT INTUBATED AND SEDATED. VENT SETTINGS ARE A/C VC 22/450/7/45%. O2 SATURATION AT 95%. PROPOFOL INFUSING AT 20 MCG/KG/MIN, LEVOPHED INFUSING AT 6 MCG/MIN - BP 96/79 WITH MAP OF 86, VASOPRESSIN ON SB. RECTAL TUBE AND SEN PATENT AND DRAINING. NO ACUTE NEEDS IDENTIFED AT THIS TIME. SEE SHIFT ASSESSMENT FOR FULL DETAILS.
[2023-12-15 21:32] LABS: Vancomycin, Trough 18.2 ug/mL (5.0-10.0)
[2023-12-16] VITALS (93 sets, daily range): BP systolic 82–111; BP diastolic 57–92
[2023-12-16 03:47] LABS: Hematocrit 29.6 % (37.0-53.0); Hemoglobin 9.9 g/dL (13.5-17.5); Mean Corpuscular HGB 34.7 pg (26.0-34.0); Mean Corpuscular HGB Conc 33.4 g/dL (31.5-36.5); NRBC ABSOLUTE 0.03 K/mm3 (0.00-0.02); NRBC Auto 0.4 /100 WBC (0.0-0.2); Platelet Count 124 K/mm3 (150-400); RDW Coefficient Variation 13.3 % (11.7-14.2); RDW Standard Deviation 51.5 fL (35.1-46.3); Red Blood Cell Count 2.85 M/mm3 (4.30-5.90); White Blood Cell Count 8.17 K/mm3 (4.00-11.30)
[2023-12-16 03:52] LABS: Mean Corpuscular Volume 104 fL (80-100)
[2023-12-16 04:05] LABS: Albumin, Blood 1.7 g/dL (3.4-5.0); Albumin/Globulin Ratio 0.5 (0.8-1.8); Bun/Creatinine Ratio 18.3 (12.0-20.0); Creatinine, Blood 1.04 mg/dL (0.60-1.20); Globulin, Blood 3.5 g/dL (2.2-4.0); Phosphorus, Blood 3.1 mg/dL (2.5-4.9); Potassium, Blood 3.2 mmol/L (3.5-5.5); Total Protein, Blood 5.2 g/dL (6.4-8.2)
[2023-12-16 04:45] LABS: BAND PERCENT MAN 29 % (0-8); BASOPHILS PERCENT MAN 0 % (0-2); EOSINOPHILS PERCENT MAN 0 % (0-6); LYMPHOCYTES ABSOLUTE MAN 0.16 K/mm3 (0.84-5.20); LYMPHOCYTES PERCENT MAN 2 % (21-46); METAMYELOCYTE PERCENT MAN 5 % (0-0); MONOCYTES ABSOLUTE MAN 0.49 K/mm3 (0.16-1.47); MONOCYTES PERCENT MAN 6 % (4-13); SEG NEUTROPHILS PERCENT MAN 58 % (41-73); TOTAL CELLS COUNTED 100
[2023-12-16] MEDS ORDERED: Potassium Chloride 40 MEQ in NS 250 ML IV ONE (05:15)
[2023-12-16] MEDS ORDERED: Albumin (Human) 25gm/100ml 100 ML IV ONE (05:15)
[2023-12-16] MEDS ORDERED: CALCIUM GLUC IN NACL, ISO-OSM 50 ML IV ONE (05:20)
--- NOTE | 2023-12-16 06:49 | NUR ---
SHIFT SUMMARY PT INTUBATED AND SEDATED T/O ENTIRETY OF SHIFT. TMAX OF 102, ICE PACKS AND FANS UTILIZED WITH GOOD BENEFIT - TEMP DOWN TO 99.2. UNABLE TO FOLLOW COMMANDS OR MAKE PURPOSEFUL MOVEMENTS, BRIEF RESPONSE TO NOXIOUS STIMULI. CONTINUOUS CARDIAC MONITORING IN PLACE SHOWING SINUS TACHY WITH HR IN 110'S-120'S. SBP STABLE 80'S-100'S. MAP REMAINED > 65. VENT SETTINGS ARE A/C VC 22/450/7/45%. ETT 8.0 23 AT THE GUMS. SEN PATENT AND DRAINING DOROTEO COLORED URINE TO GRAVITY. RECTAL TUBE PATENT AND DRAINING WITH 100 mL OF BROWN/YELLOW STOOL OUT. TF HAS BEEN ON SB SINCE 0600 PER HOSPITALIST IN PREPARATION FOR POSSIBLE EXTUBATION TODAY. LEVOPHED AND VASOPRESSON ON SB, POTASSIUM AND ALBUMIN REPLACEMENT INFUSING TO R FEM. WILL CONTINUE TO MONITOR AND REPORT TO ONCOMING RN. UPDATED ON STATUS AT START OF SHIFT.
--- NOTE | 2023-12-16 18:22 | NUR ---
Summary. Pt remained in bed, intubated and sedated this shift. Possible extubation tomorrow. No acute events this shift, updated on patient condition over the phone this afternoon. See chart for further details.
--- NOTE | 2023-12-16 20:30 | NUR ---
ASSUMPTION OF CARE ASSUMED CARE OF PATIENT AT 1900. PT INTUBATED AND SEDATED. PROPOFOL AT 30 MCG/KG/MIN. RASS -4. PT DOES NOT OPEN EYES TO VERBAL STIMULI. PT WILL GRIMACE TO PAINFUL STIMULI. NO PURPOSEFUL MOVMENTS OBSERVED. TEMPERATURE 101.9, PRN TYLENOL GIVEN. PUPILS EQUAL WITH SLUGGISH RESPONSES TO LIGHT. VENT SETTINGS AC/VC 18/450/7/40%. PT HAS MODERATE AMMOUNTS OF SECRETIONS WITH SUCTIONING. ST ON MONITOR. BP STABLE. SEN PATENT AND DRAINING TO GRAVITY. RECTAL TUBE DRAINING TO GRAVITY. TUBE FEEDINGS STARTED AT 10ML/HR FOR TRICKLE FEEDING.
[2023-12-16 21:42] LABS: Vancomycin, Trough 17.5 ug/mL (5.0-10.0)
[2023-12-17] VITALS (78 sets, daily range): BP systolic 90–136; BP diastolic 68–123
[2023-12-17 04:07] LABS: Hematocrit 29.9 % (37.0-53.0); Hemoglobin 9.8 g/dL (13.5-17.5); Mean Corpuscular HGB Conc 32.8 g/dL (31.5-36.5); Mean Corpuscular Volume 107 fL (80-100); Mean Platelet Volume 12.2 fL (9.1-12.4); NRBC ABSOLUTE 0.05 K/mm3 (0.00-0.02); NRBC Auto 0.4 /100 WBC (0.0-0.2); Platelet Count 153 K/mm3 (150-400); RDW Coefficient Variation 13.9 % (11.7-14.2); RDW Standard Deviation 55.1 fL (35.1-46.3); White Blood Cell Count 12.91 K/mm3 (4.00-11.30)
[2023-12-17 04:28] LABS: Albumin, Blood 2.1 g/dL (3.4-5.0); Albumin/Globulin Ratio 0.5 (0.8-1.8); Bilirubin, Total 1.1 mg/dL (0.1-1.0); Calcium, Blood 8.1 mg/dL (8.5-10.1); Creatinine, Blood 1.03 mg/dL (0.60-1.20); Globulin, Blood 4.2 g/dL (2.2-4.0); Phosphorus, Blood 3.1 mg/dL (2.5-4.9); Potassium, Blood 3.8 mmol/L (3.5-5.5); Total Protein, Blood 6.3 g/dL (6.4-8.2)
[2023-12-17 04:30] LABS: BAND PERCENT MAN 18 % (0-8); BASOPHILS PERCENT MAN 0 % (0-2); EOSINOPHILS PERCENT MAN 0 % (0-6); LYMPHOCYTES ABSOLUTE MAN 0.51 K/mm3 (0.84-5.20); LYMPHOCYTES PERCENT MAN 4 % (21-46); METAMYELOCYTE ABSOLUTE MAN 0.25 K/mm3 (0.00-0.00); METAMYELOCYTE PERCENT MAN 2 % (0-0); MONOCYTES PERCENT MAN 7 % (4-13); NEUTROPHILS ABSOLUTE MAN 11.23 K/mm3 (1.96-9.15); SEG NEUTROPHILS PERCENT MAN 69 % (41-73); TOTAL CELLS COUNTED 100
--- NOTE | 2023-12-17 05:54 | NUR ---
SHIFT SUMMARY NO ACUTE CHANGES OVERNIGHT. PROPOFOL AT 30 MCG/KG/MIN. RASS -4. PT GRIMACES TO PATIENT CARE AND REPOSITIONING BUT WILL NOT FOLLOW COMMANDS. VENT SETTINGS AT AC/AV 18/450/7/40%. TMAX 101.8 PRN TYLENOL GIVEN AND ICEPACKS APPLIED, TEMP NOW AT 99.0. LUNG SOUNDS CLEAR T/O. TF TURNED OFF AT 0600. FREQUENT COUGHING FITS ON VET, THREE DOSES OF PRN FENTANYL GIVEN.
[2023-12-17] MEDS ORDERED: Folic Acid 1 MG TAB PT SCH (09:00)
[2023-12-17] MEDS ORDERED: Thiamine HCl 100 MG Tab PT SCH (09:00)
[2023-12-17] MEDS ORDERED: Furosemide 10 MG / ML 2ML Vial IV ONE (12:05)
--- NOTE | 2023-12-17 15:28 | NUR ---
Spiritual Care Attempt. Pt. is intubated and not responsive on the based of his charted ervin position, prayers for the Pt. are given. Will remain available to Pt.
--- NOTE | 2023-12-17 18:27 | NUR ---
Summary. Pt rested in bed throughout shift. Propofol put on standby from [id number] for sedation vacation. After sedation vacation/vent wean, decision made to keep patient on ventilator another night. PICC placed this am, R/fem central line removed. No acute events this shift. updated by telephone this afternoon, she agrees with plan of care. See chart for further details.
--- NOTE | 2023-12-17 19:00 | NUR ---
ASSUMED CARE OF PT AT 1900 PT RESTING ON BED, APPEARS DROWSY BUT RAISES EYEBROWS TO VERBAL STIMULI, BUT DOES NOT OPEN EYES. ABLE TO FOLLOW SIMPLE COMMANDS, SUCH SQUEEZE HANDS. PT ON VENT, SETTINGS ACVC: 18/7/450/40% FIO2. APPEARS SLIGHTLY FLUSHED AND DIAPHORETIC. ON LICENSED OCCUPATIONAL THERAPY ASSISTANT, NSR RATE OF 80S. BP STABLE. PROPOFOL AT 30MCG/KG/MIN. TUBE FEEDING RUNNING AT 10ML/HR, GOAL OF 20. TEMP PROBE SEN PATENT AND DRAINING TO GRAVITY. RECTAL TUBE IN PLACE.
[2023-12-18] VITALS (58 sets, daily range): BP systolic 97–133; BP diastolic 64–104
[2023-12-18 03:25] LABS: Hematocrit 30.4 % (37.0-53.0); Hemoglobin 9.9 g/dL (13.5-17.5); Mean Corpuscular HGB 34.4 pg (26.0-34.0); Mean Corpuscular HGB Conc 32.6 g/dL (31.5-36.5); Mean Corpuscular Volume 106 fL (80-100); Mean Platelet Volume 11.9 fL (9.1-12.4); NRBC ABSOLUTE 0.05 K/mm3 (0.00-0.02); NRBC Auto 0.5 /100 WBC (0.0-0.2); Platelet Count 152 K/mm3 (150-400); RDW Coefficient Variation 13.8 % (11.7-14.2); RDW Standard Deviation 53.5 fL (35.1-46.3); Red Blood Cell Count 2.88 M/mm3 (4.30-5.90); White Blood Cell Count 10.99 K/mm3 (4.00-11.30)
[2023-12-18 03:49] LABS: Albumin/Globulin Ratio 0.5 (0.8-1.8); Bilirubin, Total 1.1 mg/dL (0.1-1.0); Bun/Creatinine Ratio 42.6 (12.0-20.0); Calcium, Blood 8.3 mg/dL (8.5-10.1); Creatinine, Blood 0.87 mg/dL (0.60-1.20); Globulin, Blood 4.1 g/dL (2.2-4.0); Phosphorus, Blood 2.1 mg/dL (2.5-4.9); Potassium, Blood 2.9 mmol/L (3.5-5.5); Total Protein, Blood 6.1 g/dL (6.4-8.2)
[2023-12-18 03:52] LABS: BAND PERCENT MAN 13 % (0-8); BASOPHILS PERCENT MAN 0 % (0-2); EOSINOPHILS PERCENT MAN 0 % (0-6); LYMPHOCYTES ABSOLUTE MAN 0.32 K/mm3 (0.84-5.20); LYMPHOCYTES PERCENT MAN 3 % (21-46); MONOCYTES ABSOLUTE MAN 0.76 K/mm3 (0.16-1.47); MONOCYTES PERCENT MAN 7 % (4-13); NEUTROPHILS ABSOLUTE MAN 9.89 K/mm3 (1.96-9.15); SEG NEUTROPHILS PERCENT MAN 77 % (41-73); TOTAL CELLS COUNTED 100
--- NOTE | 2023-12-18 05:30 | NUR ---
END OF SHIFT SUMMARY NO ACUTE EVENTS OVERNIGHT. VENT SETTINGS UNCHANGED FROM START OF SHIFT. PT REQUIRED FREQUENT SUCTIONING, THICK YELLOW/WHITE SECRETIONS FROM TUBE. PT LUNGS COARSE T/O. PT HR STABLE, NSR RATE OF 80S. BP STABLE. PROPOFOL INCREASED TO 40MCG/KG/MIN. PT HAD TEMP, MAX OF 101.9- TREATED W/ TYELNOL AND FANS. TEMP SEN PATENT AND DRAINING TO GRAVITY. RECTAL TUBE IN PLACE. WILL REPORT TO ONCOMING SHIFT RN WHEN AVAILABLE. CARE CONTINUES.
[2023-12-18] MEDS ORDERED: Potassium Phosphate Dibasic 30 MM in Dextrose 5% 500 ML IV ONE (06:00)
[2023-12-18] MEDS ORDERED: Albuterol 2.5 MG/3 ML VIAL INH PRN (06:40)
--- NOTE | 2023-12-18 08:05 | NUR ---
ASSUMED CARE: REPORT RECEIVED FROM STEFANIE LLAMAS. ASSUMED CARE OF THIS PT AT APPROX 0700. ON ASSESSMENT, THE PT IS SEDATED W/ PROPOFOL & INTUBATED. RASS -1/-2. HERNANDEZ, DOES NOT SPONTANEOUSLY OPEN EYES OR FOLLOW DIRECTIONS. LS COARSE T/O, CRACKLES NOTED TO RUL, DIM IN BASES. VENT SETTINGS: AC/VC 18/450/7/40% W/ O2 SATS > 92%. MONITOR SHOWS SR W/ HR 90s, BP STABLE. OGT IN PLACE, CLAMPED SINCE APPROX 0600 FOR POSSIBLE EXTUBATION THIS SHIFT, PER FOOTBALL SCOUT RN REPORT. TEMP SEN PATENT/ DRAINING DARK YELLOW URINE - IN PLACE FOR STRICT I&O MONITORING. SKIN CONDITION OVERALL FRAGILE, INTACT. Q2H REPOSITIONING TO MAINTAIN SKIN INTEGRITY. WILL CONTINUE TO MONITOR & UPDATE NEEDED.
[2023-12-18] MEDS ORDERED: Furosemide 10 MG/ML 4ML Vial IV ONE (09:15)
--- NOTE | 2023-12-18 09:50 | NUR ---
DR JUSTICE: PROVIDER HAS BEEN AT BEDSIDE TO ELDER PT THIS AM. ORDERS PLACED FOR IV LASIX & ADDITIONAL KCL TO BE GIVEN PER OGT. THIS RN REQUESTS CLARIFICATION ABOUT TUBE FEEDING BEING ON STANDBY SINCE THIS AM, HE STS TO RESUME AT PRIOR TRICKLE FEED RATE. NO OTHER CHANGES AT THIS TIME.
[2023-12-18] MEDS ORDERED: Potassium Chloride 20 MEQ/15 ML UDC PO SCH (10:00)
[2023-12-18] MEDS ORDERED: Ipratropium/Albuterol SulF 2.5-0.5MG/3 ML Amp INH SCH (10:20)
--- NOTE | 2023-12-18 14:55 | NUR ---
DR JUSTICE: THE PROVIDER HAS ROUNDED AGAIN THIS AFTERNOON & HAS PLACED ORDERS FOR A REPEAT ABD US IN THE AM. DEPENDING ON THOSE RESULTS, HE MAY PROCEED W/ ORDERING A HIDA SCAN. TUBE FEEDS SHOULD BE PLACED ON HOLD AT 0400, THE PT SHOULD BE NPO 6 HRS PRIOR TO ABD US. SEUN, YARN COMBER, HAS BEEN UPDATED THAT DR JUSTICE WOULD LIKE THE PT TO REMAIN ON TRICKLE FEEDS ONLY UNTIL THESE TESTS ARE RESULTED, OKAY TO INCREASE RATE FROM 10-20 ML/HR. NO OTHER CHANGES AT THIS TIME.
--- NOTE | 2023-12-18 17:54 | NUR ---
SHIFT SUMMARY: NO ACUTE CHANGES SINCE PRIOR UPDATES. PT REMAINS SEDATED W/ PROPOFOL, INTUBATED. DOES NOT OPEN EYES SPONTANEOUSLY OR FOLLOW DIRECTIONS. LS COARSE, DIM. VENT SETTINGS: AC/VC 18/450/7/40% W/ O2 SATS > 92%. LARGE AMNTS OF ORAL & ETT SECRETIONS NOTED THIS SHIFT. MONITOR SHOWS SR W/ HR 80s, BP STABLE. OGT W/ TUBE FEEDS INFUSING AT GOAL RATE, NO S/SX INTOLERANCE NOTED. RECTAL TUBE PATENT/ DRAINING BROWN LIQUID STLS. SKIN CONDITION OVERALL INTACT, Q2H REPOSITIONING TO MAINTAIN SKIN INTEGRITY. WILL CONTINUE TO MONITOR & REPORT OFF TO ONCOMING RN.
[2023-12-18 21:52] LABS: Vancomycin, Trough 15.2 ug/mL (5.0-10.0)
[2023-12-19] VITALS (28 sets, daily range): BP systolic 100–147; BP diastolic 66–93
[2023-12-19 04:13] LABS: Hematocrit 30.6 % (37.0-53.0); Hemoglobin 10.2 g/dL (13.5-17.5); Mean Corpuscular HGB 34.7 pg (26.0-34.0); Mean Corpuscular HGB Conc 33.3 g/dL (31.5-36.5); Mean Corpuscular Volume 104 fL (80-100); NRBC ABSOLUTE 0.04 K/mm3 (0.00-0.02); NRBC Auto 0.3 /100 WBC (0.0-0.2); Platelet Count 208 K/mm3 (150-400); RDW Coefficient Variation 13.8 % (11.7-14.2); RDW Standard Deviation 53.1 fL (35.1-46.3); Red Blood Cell Count 2.94 M/mm3 (4.30-5.90); White Blood Cell Count 12.14 K/mm3 (4.00-11.30)
[2023-12-19 04:32] LABS: Albumin, Blood 1.8 g/dL (3.4-5.0); Albumin/Globulin Ratio 0.4 (0.8-1.8); Bilirubin, Total 1.2 mg/dL (0.1-1.0); Bun/Creatinine Ratio 35.2 (12.0-20.0); Calcium, Blood 8.3 mg/dL (8.5-10.1); Creatinine, Blood 0.71 mg/dL (0.60-1.20); Globulin, Blood 4.3 g/dL (2.2-4.0); Potassium, Blood 3.1 mmol/L (3.5-5.5); Total Protein, Blood 6.1 g/dL (6.4-8.2)
[2023-12-19 04:39] LABS: BAND PERCENT MAN 9 % (0-8); BASOPHILS PERCENT MAN 0 % (0-2); EOSINOPHILS ABSOLUTE MAN 0.24 K/mm3 (0.00-0.68); EOSINOPHILS PERCENT MAN 2 % (0-6); LYMPHOCYTES % ATYPICAL MANUAL 1 % (0-0); LYMPHOCYTES ABSOLUTE MAN 0.36 K/mm3 (0.84-5.20); LYMPHOCYTES PERCENT MAN 2 % (21-46); METAMYELOCYTE ABSOLUTE MAN 0.12 K/mm3 (0.00-0.00); METAMYELOCYTE PERCENT MAN 1 % (0-0); MONOCYTES ABSOLUTE MAN 0.84 K/mm3 (0.16-1.47); MONOCYTES PERCENT MAN 7 % (4-13); MYELOCYTE ABSOLUTE MAN 0.24 K/mm3 (0.00-0.00); MYELOCYTE PERCENT MAN 2 % (0-0); NEUTROPHILS ABSOLUTE MAN 10.31 K/mm3 (1.96-9.15); SEG NEUTROPHILS PERCENT MAN 76 % (41-73); TOTAL CELLS COUNTED 100
--- NOTE | 2023-12-19 05:14 | NUR ---
SHIFT SUMMARY NO ACUTE EVENTS T/O NIGHT. HOSP CALLED ABOUT K+ OF 3.1. ORDERS RECEIVED. INTUBATED AND SEDATED AC/VC 18/450/7/35% RR 18-35. PROPOFOL GTT INFUSING. SEE FLOWSHEET FOR RATE AND TITRATIONS. PT COUGHING AND STACKING BREATHS T/O THE NIGHT, SOMETIMES ABLE TO SUCTION LARGE AMOUNTS OF BLOOD TINGED DE LA CRUZ SPUTUM AND OTHERS VERY MINIMAL AMOUNT OF SPUTUM. VSS. SR RATE 80-90'S. OGT WITH TF. TURNED OFF AT 0400 PER ORDER. SEN PATENT AND DRAINING TO GRAVITY. RECTAL TUBE IN PLACE WITH MINIMAL OUTPUT. WILL REPORT OFF TO ONCOMING RN.
[2023-12-19] MEDS ORDERED: Potassium Chloride 40 MEQ in NS 250 ML IV ONE (05:30)
--- NOTE | 2023-12-19 07:00 | NUR ---
ASSUME CARE: I have assumed care of this patient
--- NOTE | 2023-12-19 12:11 | NUR ---
FAMILY UPDATE: Pt's , Opal, called and provided update.
--- NOTE | 2023-12-19 18:25 | NUR ---
SHIFT SUMMARY: Sedation changed from propofol to precedex with good result. Pt tolerating ventilator better and is now able to interact with RN and follow commands; He moves all extremities. Pt's Opal received updates via telephone. Tube feeds were restarted at 10 mls/hr per Dr Gonzales. Bilateral wrist restraints continue. Fluid balance +84 with tea colored urine. Rectal tube still in place with liquid stool. Pt's reports liquid stool at baseline due to ulcerative colitis.
[2023-12-20] VITALS (32 sets, daily range): BP systolic 105–167; BP diastolic 75–107
--- NOTE | 2023-12-20 00:05 | NUR ---
ASSUMED CARE ASSUMED CARE AT 1900. PT INTUBATED AND SEDATED. AC/VC 18/450/7/35% RR 18-36. MODERATE-LARGE AMOUNTS OF ORAL AND ETT SECRETIONS. PRECEDEX GTT INFUSING. SEE FLOWSHEET FOR RATE AND TITRATIONS. PT MINIMALLY OPENS EYES AND LOOKS IN THE DIRECTION OF PERSON TALKING. DOES NOT TRACK. MOVES EXTREMITIES ON COMMAND. VSS. SR RATE 80'S. OGT WITH TF AT 10ML/HR. SEN PATENT AND DRAINING TO GRAVITY. RECTAL TUBE IN PLACE.
--- NOTE | 2023-12-20 00:15 | NUR ---
UPDATE PT LIFTING HEAD AND BACK OFF OF BED, PULLING AGAINST RESTRAINTS, AND MOVING LEGS OFF PILLOWS. PT ATTEMPTING TO TALK AROUND ETT AND COUGHING. RR 40'S. ATTEMPTED THERAPEUTIC COMMUNICATION TO CALM PT W/O EFFECT. PRECEDEX TITRATED UP AND FENTANYL GIVEN. PT REMAINED LIFTING SELF OFF BED AND REACHING FOR ETT. ATIVAN GIVEN AND PT NOW CALM, RR 20'S.
[2023-12-20 03:32] LABS: Hematocrit 31.2 % (37.0-53.0); Hemoglobin 10.3 g/dL (13.5-17.5); Mean Corpuscular HGB 34.7 pg (26.0-34.0); Mean Corpuscular Volume 105 fL (80-100); Mean Platelet Volume 11.8 fL (9.1-12.4); NRBC ABSOLUTE 0.02 K/mm3 (0.00-0.02); NRBC Auto 0.1 /100 WBC (0.0-0.2); Platelet Count 277 K/mm3 (150-400); RDW Coefficient Variation 13.8 % (11.7-14.2); RDW Standard Deviation 52.7 fL (35.1-46.3); Red Blood Cell Count 2.97 M/mm3 (4.30-5.90); White Blood Cell Count 13.37 K/mm3 (4.00-11.30)
[2023-12-20 03:49] LABS: Albumin, Blood 1.8 g/dL (3.4-5.0); Anion Gap 9 mmol/L (3-11); Blood Urea Nitrogen 27 mg/dL (8-24); CO2, Blood 27 mmol/L (21-32); Calcium, Blood 8.8 mg/dL (8.5-10.1); Chloride, Blood 115 mmol/L (98-108); Creatinine, Blood 0.69 mg/dL (0.60-1.20); Glomerular Filtration Rate 106 (60-); Glucose, Blood 133 mg/dL (70-99); Phosphorus, Blood 2.6 mg/dL (2.5-4.9); Potassium, Blood 3.6 mmol/L (3.5-5.5); Sodium, Blood 147 mmol/L (136-145)
[2023-12-20 04:25] LABS: BAND PERCENT MAN 7 % (0-8); BASOPHILS PERCENT MAN 0 % (0-2); EOSINOPHILS ABSOLUTE MAN 0.13 K/mm3 (0.00-0.68); EOSINOPHILS PERCENT MAN 1 % (0-6); LYMPHOCYTES ABSOLUTE MAN 0.53 K/mm3 (0.84-5.20); LYMPHOCYTES PERCENT MAN 4 % (21-46); METAMYELOCYTE ABSOLUTE MAN 0.13 K/mm3 (0.00-0.00); METAMYELOCYTE PERCENT MAN 1 % (0-0); MONOCYTES PERCENT MAN 6 % (4-13); MYELOCYTE ABSOLUTE MAN 0.26 K/mm3 (0.00-0.00); MYELOCYTE PERCENT MAN 2 % (0-0); NEUTROPHILS ABSOLUTE MAN 11.49 K/mm3 (1.96-9.15); SEG NEUTROPHILS PERCENT MAN 79 % (41-73); TOTAL CELLS COUNTED 100
[2023-12-20] MEDS ORDERED: HydrALAZINE HCl 20 MG / ML 1ML Vial IV PRN (04:45)
--- NOTE | 2023-12-20 05:38 | NUR ---
SHIFT SUMMARY NO ACUTE EVENTS T/O NIGHT. PT REMAINS INTUBATED AND SEDATED. NO VENT SETTING CHANGES. PRECEDEX GTT REMAINS INFUSING. ATIVAN GIVEN TWICE AND FENTANYL GIVEN ONCE FOR AGITATION AND VENT COMPLIANCE. MODERATE AMOUNTS OF SECRETIONS SUCTIONED FOR ETT. APPEARS DECREASED AMOUNT FROM PREVIOUS SHIFT WORKED. OGT WITH TF AT GOAL. SEN PATENT AND DRAINING TO GRAVITY. RECTAL TUBE IN PLACE. BATH GIVEN. WILL REPORT OFF TO ONCOMING RN.
--- NOTE | 2023-12-20 07:00 | NUR ---
ASSUME CARE: I have assumed care of this patient.
[2023-12-20] MEDS ORDERED: Haloperidol Lactate Inj. 5 MG/ML Injection IV PRN (09:35)
--- NOTE | 2023-12-20 10:00 | NUR ---
SPOUSE AT BEDSIDE: She was provided update by Dr Smith. Questions answered.
[2023-12-20] MEDS ORDERED: Potassium Phosphate Dibasic 30 MM in NS 500 ML IV SCH (13:00)
[2023-12-20] MEDS ORDERED: Furosemide 10 MG/ML 4ML Vial IV ONE (13:00)
[2023-12-20] MEDS ORDERED: Potassium Phosphate Dibasic 30 MM in Dextrose 5% 500 ML IV SCH (13:45)
--- NOTE | 2023-12-20 18:31 | NUR ---
SHIFT SUMMARY: Haldol started today for agitation this AM. He was attempting to self extubate and flipping off RN with precedex at 0.7 mcg/kd/hr. He received two doses of PRN ativan today. See flow sheets for sedation titrations. Pt was then able to tolerate an SBT 7/ for five hours this afternoon. Lasix given with significant diuresis. Fluid balance -[phone]. Pt's , Opal, visted for the first time today for a short period due to her recent hospitalization. She reported that Reji had a cough for approximately seven months with hemoptysis before he was hospitalized. Dr Gonzales notified of this information.
[2023-12-20] MEDS ORDERED: QUEtiapine Fumarate 25 MG Tab PT SCH (21:00)
[2023-12-20] MEDS ORDERED: Acetaminophen 160MG / 5ML 10.15 UDC PT PRN (23:25)
[2023-12-21] VITALS (77 sets, daily range): BP systolic 130–184; BP diastolic 76–122
[2023-12-21 04:39] LABS: Hematocrit 29.8 % (37.0-53.0); Hemoglobin 9.8 g/dL (13.5-17.5); Mean Corpuscular HGB 34.3 pg (26.0-34.0); Mean Corpuscular HGB Conc 32.9 g/dL (31.5-36.5); Mean Corpuscular Volume 104 fL (80-100); Mean Platelet Volume 11.1 fL (9.1-12.4); Platelet Count 315 K/mm3 (150-400); RDW Coefficient Variation 13.9 % (11.7-14.2); RDW Standard Deviation 53.1 fL (35.1-46.3); Red Blood Cell Count 2.86 M/mm3 (4.30-5.90)
[2023-12-21 05:02] LABS: Albumin, Blood 1.6 g/dL (3.4-5.0); Anion Gap 11 mmol/L (3-11); Blood Urea Nitrogen 22 mg/dL (8-24); Bun/Creatinine Ratio 30.9 (12.0-20.0); CO2, Blood 29 mmol/L (21-32); Calcium, Blood 8.3 mg/dL (8.5-10.1); Chloride, Blood 113 mmol/L (98-108); Creatinine, Blood 0.71 mg/dL (0.60-1.20); Glomerular Filtration Rate 105 (60-); Glucose, Blood 121 mg/dL (70-99); Phosphorus, Blood 2.8 mg/dL (2.5-4.9); Potassium, Blood 2.7 mmol/L (3.5-5.5); Sodium, Blood 150 mmol/L (136-145)
[2023-12-21 05:23] LABS: BAND PERCENT MAN 6 % (0-8); BASOPHILS ABSOLUTE MAN 0.12 K/mm3 (0.00-0.23); BASOPHILS PERCENT MAN 1 % (0-2); EOSINOPHILS ABSOLUTE MAN 0.51 K/mm3 (0.00-0.68); EOSINOPHILS PERCENT MAN 4 % (0-6); LYMPHOCYTES ABSOLUTE MAN 0.38 K/mm3 (0.84-5.20); LYMPHOCYTES PERCENT MAN 3 % (21-46); METAMYELOCYTE ABSOLUTE MAN 0.12 K/mm3 (0.00-0.00); METAMYELOCYTE PERCENT MAN 1 % (0-0); MONOCYTES ABSOLUTE MAN 0.12 K/mm3 (0.16-1.47); MONOCYTES PERCENT MAN 1 % (4-13); MYELOCYTE ABSOLUTE MAN 0.12 K/mm3 (0.00-0.00); MYELOCYTE PERCENT MAN 1 % (0-0); NEUTROPHILS ABSOLUTE MAN 11.48 K/mm3 (1.96-9.15); SEG NEUTROPHILS PERCENT MAN 83 % (41-73); TOTAL CELLS COUNTED 100
--- NOTE | 2023-12-21 06:23 | NUR ---
ASSUMED CARE OF PATIENT AT 0400. PT INTUBATED AND SEDATED. DOES NOT FOLLOW COMMANDS, BRIEFLY RESPONDS TO NOXIOUS STIMULI. CONTINUOUS CARDIAC MONITORING IN PLACE SHOWING SR WITH HR IN 70'S-80'S. SBP 160'S. VENT SETTINGS A/C VC 18/450/7/35%. ETT 8.0, 23 AT THE GUM. SATURATIONS > 92%. COPIOUS SECRETIONS WITH DEEP AND ORAL SUCTIONING, DE LA CRUZ/RED IN COLOR. RECTAL TUBE IN PLACE, TEMP SEN IN PLACE, BOTH PATENT AND DRAINING. URINE IS TEA COLORED. BRUISE TO R GREAT TOE FROM KNOWN FX. SWELLING OF TESTICLES NOTED.
[2023-12-21] MEDS ORDERED: Potassium Chloride 20 MEQ/15 ML UDC PT ONE (06:35)
[2023-12-21] MEDS ORDERED: Potassium Chloride 40 MEQ in NS 250 ML IV ONE ×2 (06:35→19:55)
[2023-12-21] MEDS ORDERED: Dextrose 5% 1,000 ML IV SCH (06:35)
--- NOTE | 2023-12-21 06:39 | NUR ---
END OF SHIFT/LABS PT TEMPERATURE INCREASING TO 103.0, ICE PACKS AND FANS UTILIZED WITH TEMPERATURE DECREASING, CURRENTLY AT 102.5. MORNING LABS REVEALED ELEVATED SODIUM AND LOW POTASSIUM. ORDERS PLACED. WILL CONTINUE TO MONITOR AND REPORT TO ONCOMING RN.
[2023-12-21] MEDS ORDERED: Losartan Potassium 25 MG Tab PT SCH (09:00)
[2023-12-21 09:45] LABS: Vancomycin, Trough 10.7 ug/mL (5.0-10.0)
[2023-12-21] MEDS ORDERED: Vancomycin HCL 1,500 MG in NS 250 ML IV SCH (10:00)
[2023-12-21] MEDS ORDERED: Potassium Chloride 20 MEQ/15 ML UDC PT SCH (10:00)
--- NOTE | 2023-12-21 12:17 | NUR ---
Extubation. Pt extubated at approximately 0925 to 5L NC 02. OG tube removed, restraints DC'd.
[2023-12-21 12:26] LABS: Albumin, Blood 1.8 g/dL (3.4-5.0); Albumin/Globulin Ratio 0.4 (0.8-1.8); Bilirubin, Total 1.3 mg/dL (0.1-1.0); Bun/Creatinine Ratio 32.7 (12.0-20.0); Calcium, Blood 8.8 mg/dL (8.5-10.1); Creatinine, Blood 0.61 mg/dL (0.60-1.20); Globulin, Blood 4.9 g/dL (2.2-4.0); Potassium, Blood 3.4 mmol/L (3.5-5.5); Total Protein, Blood 6.7 g/dL (6.4-8.2)
[2023-12-21] MEDS ORDERED: Acetaminophen 325 MG TABLET PO PRN (14:35)
[2023-12-21] MEDS ORDERED: Ibuprofen 600 MG Tab PO PRN (14:40)
--- NOTE | 2023-12-21 17:47 | NUR ---
SHIFT SUMMARY.... REPORT GIVEN TO THIS RN AT 1725 FROM NAIDA Hirsch RN. PT HAS BEEN STABLE SINCE EXTUBATION EARLIER THIS SHIFT. PT IS ON THE AIRVO AT 35L AND 50% WITH O2 SATS>92%. PT IS ABLE TO COUGH UP SECRETIONS BUT IS UNABLE TO GET THEM OUT, PT HAS NEEDED PRN ORAL CARE/ SUCTIONING. PT'S TEMP CONTINUES TO BE ELEVATED >102, ICE PACKS IN PLACE. SEN IS PATENT AND DRAINING TO GRAVITY, RECTAL TUBE IS PATENT AND DRAINING BROWN LIQUID STOOL TO GRAVITY. WILL CONTINUE TO MONITOR UNTIL REPORT IS GIVEN TO ONCOMING RN.
--- NOTE | 2023-12-21 19:30 | NUR ---
ASSUMTPION OF CARE ASSUMED CARE OF PATIENT AT 1900, BEDSIDE SHIFT REPORT RECEIVED FROM NAYE RN. PT RESTING IN BED, ALERT, ABLE TO STATE NAME AND YEAR. PT IS SLOW TO RESPOND, WORDS ARE MUMBLED AND HARD TO UNDERSTAND AT TIMES. PT WEAK, MOVES EXTREMITIES EQUALLY BILATERALLY, FOLLOWS DIRECTION WHEN PROMPTED. HR 90-110'S SINUS, MAP >65. PT ON AIRVO 35L 50%, OXYGEN SATURATION >95%. PT HAS MODERATE AMOUNT OF ORAL SECRETIONS, PT IS ABLE TO COUGH SOME SECRETIONS UP, NEEDS HELP WITH SUCTIONING. ABDOMEN SOFT, BOWEL TONES ACTIVE IN ALL FOUR QUADRANTS. TEMP FOELY IN PLACE PATENT DRAINING DOROTEO COLORED URINE TO GRAVITY. PT IS FEBRILE, FANS AND ICE PACKS IN PLACE, PROVIDER AWARE. PICC LINE IN PLACE TO WARREN INFUSING NS TKO. BED IN LOWEST POSITION, CALL LIGHT WITHIN REACH, CARE CONTINUES.
[2023-12-21] MEDS ORDERED: FentaNYL Citrate 50 MCG/ML 2 ML Injection IV PRN (20:00)
[2023-12-21] MEDS ORDERED: QUEtiapine Fumarate 25 MG Tab PO SCH (21:00)
[2023-12-22] VITALS (44 sets, daily range): BP systolic 121–164; BP diastolic 72–111
[2023-12-22 04:22] LABS: BASOPHILS ABSOLUTE AUTO 0.04 K/mm3 (0.00-0.23); BASOPHILS PERCENT AUTO 0 % (0-2); EOSINOPHILS ABSOLUTE AUTO 0.01 K/mm3 (0.00-0.68); EOSINOPHILS PERCENT AUTO 0 % (0-6); Hematocrit 30.9 % (37.0-53.0); Hemoglobin 10.2 g/dL (13.5-17.5); IMMATURE GRAN ABSOLUTE AUTO 0.78 K/mm3 (0.00-0.10); IMMATURE GRAN PERCENT AUTO 4 % (0-1); LYMPHOCYTES ABSOLUTE AUTO 0.95 K/mm3 (0.84-5.20); LYMPHOCYTES PERCENT AUTO 5 % (21-46); MONOCYTES PERCENT AUTO 3 % (4-13); Mean Corpuscular HGB 34.2 pg (26.0-34.0); Mean Corpuscular Volume 104 fL (80-100); Mean Platelet Volume 10.6 fL (9.1-12.4); NEUTROPHILS ABSOLUTE AUTO 15.18 K/mm3 (1.96-9.15); NEUTROPHILS PERCENT AUTO 87 % (41-73); Platelet Count 319 K/mm3 (150-400); RDW Coefficient Variation 13.7 % (11.7-14.2); RDW Standard Deviation 51.9 fL (35.1-46.3); Red Blood Cell Count 2.98 M/mm3 (4.30-5.90); White Blood Cell Count 17.56 K/mm3 (4.00-11.30)
[2023-12-22 04:40] LABS: Albumin, Blood 1.7 g/dL (3.4-5.0); Anion Gap 9 mmol/L (3-11); Blood Urea Nitrogen 19 mg/dL (8-24); Bun/Creatinine Ratio 32.2 (12.0-20.0); CO2, Blood 28 mmol/L (21-32); Calcium, Blood 8.6 mg/dL (8.5-10.1); Chloride, Blood 115 mmol/L (98-108); Creatinine, Blood 0.59 mg/dL (0.60-1.20); Glomerular Filtration Rate 111 (60-); Glucose, Blood 107 mg/dL (70-99); Potassium, Blood 2.9 mmol/L (3.5-5.5); Sodium, Blood 149 mmol/L (136-145)
[2023-12-22] MEDS ORDERED: Potassium Chloride 40 MEQ in NS 250 ML IV ONE (05:45)
--- NOTE | 2023-12-22 06:11 | NUR ---
SHIFT SUMMARY NO ACUTE CHANGES THIS SHIFT. PT RESTING IN BED, ALERT, FOLLOWS DIRECTION WHEN PROMPTED. PT IS WEAK BUT MOVES EXTREMITIES EQUALLY BILATERALLY. PT SPEECH IS MUMBLED AND HARD TO UNDERSTAND AT TIMES. HR 90-110'S SINUS, MAP >65. PT ON AIRVO 35L 40%, OXYGEN SATURATION >95%. PT HAS HAD COPIOUS AMOUNTS OF THICK ORAL SECRETIONS THIS SHIFT. PT ABLE TO COUGH UP SECRETIONS, BUT REQUIRES HELP WITH SUCTIONING. ABDOMEN SOFT, BOWEL TONES ACTIVE IN ALL FOUR QUADRANTS. RECTAL TUBE IN PLACE PATENT DRAINING LIQUID BROWN STOOL. TEMP PROBE SEN IN PLACE PATENT DRAINING DOROTEO COLORED URINE TO GRAVITY. PT HAD TMAX OF 102.4, ICE PACKS AND FANS IN PLACE, CURRENT TEMPERATURE IS 101.7. PICC LINE IN PLACE TO WARREN INFUSING NS TKO. BED IN LOWEST POSITION, CALL LIGHT WIHTIN REACH, CARE CONTINUES.
[2023-12-22] MEDS ORDERED: Losartan Potassium 25 MG Tab PO SCH ×2 (09:00→21:00)
[2023-12-22] MEDS ORDERED: Thiamine HCl 100 MG Tab PO SCH (09:00)
[2023-12-22] MEDS ORDERED: Metoprolol Succinate 25 MG TABCR PO SCH (09:00)
[2023-12-22] MEDS ORDERED: Vitamin B Cmplx/Vit C/Folic Ac 1 Tab PO SCH (09:00)
[2023-12-22] MEDS ORDERED: Metoprolol Tartrate 25 MG Tab PO SCH (10:30)
--- NOTE | 2023-12-22 13:34 | NUR ---
Spiritual Care Visit. Pt. is awake and welcomes my visit. Pt. displays eveidence of discomfort though he won't verbally admit it. This is this chaplains thrid visit with the Pt. but only the first when he was responsive. Consider matters of ervin and belief and begin to estbalish rapport. Prayed for the Pt. Pt. verbalizes gratitude for the spiritual care visit and welcomes this lead military analyst to return. Pt. asked if could request seeing the lead military analyst, and I informed him to let his nurse know and they would contact me. Pt. displayed evidence of understanding.
[2023-12-22] MEDS ORDERED: Potassium Chl 20MEQ/Water100ML 100 ML IV ONE (16:00)
[2023-12-22] MEDS ORDERED: Potassium Chloride 20 MEQ TabCR PO ONE (16:00)
--- NOTE | 2023-12-22 16:46 | NUR ---
SHIFT SUMMARY PT HAS REMAINED AWAKE AND ALERT THIS SHIFT. PT IS ABLE TO ANSWER SOME QUESTIONS APPROPRIATELY, BUT IS CONFUSED AND WITH NONSENSICAL SPEECH AT TIMES. PT IS ABLE TO FOLLOW SIMPLE COMMANDS APPROPRIATELY. PT COMPLAINS OF BACK PAIN DURING REPOSITIONING. PT HAS REMAINED ON AIRVO 35L, FIO2 35%. VITAL SIGNS HAVE REMAINED STABLE. PICC TO WARREN REMAINS C/D/I WITH NS INFUSING TKO. SEN TEMP PROBE REMAINS IN PLACE WITH DARK YELLOW URINE OUTPUT NOTED. RECTAL TUBE REMAINS IN PLACE WITH LIQUID BROWN OUTPUT NOTED. PT SPOUSE AT BEDSIDE THIS MORNING. PT CONTINUES TO COUGH UP LARGE AMOUNT OF THICK, [place] SECRETIONS. WILL CONTINUE TO MONITOR AND REPORT OFF TO ONCOMING RN.
[2023-12-22] MEDS ORDERED: Ketorolac Tromethamine 15mg Vial IV PRN (20:25)
--- NOTE | 2023-12-22 21:10 | NUR ---
ASSUMED CARE PT APPEARS A&O X3-4; INITIALLY WAS UNABLE TO STATE WHAT BUILDING HE WAS IN, BUT STATED "OH YEA" WHEN TOLD HE WAS IN [facility]. WHEN ASKED IF PT KNEW WHY HE WAS IN HOSPITAL, PT STATED THAT HE WAS IN D/T DRINKING. PT IS MAKING REQUESTS APPROPRIATELY AND FOLLOWS COMMANDS APPROPRIATELY. STATED TO THIS RN THAT PT PLANS ON ATTENDING AA MEETINGS AFTER DISCHARGE WHEN ABLE. PT ALSO REQUESTED TO CALL AND PHONE CALL WAS MEDIATED BY THIS RN D/T PT'S DIFFICULTY IN SPEAKING.
[2023-12-23] VITALS (18 sets, daily range): BP systolic 119–170; BP diastolic 76–131
[2023-12-23] MEDS ORDERED: OxyCODONE HCL 5 MG TAB PO PRN (02:40)
[2023-12-23] MEDS ORDERED: Lidocaine 4% 1 Patch TOP PRN (03:00)
[2023-12-23] MEDS ORDERED: Lidocaine 4% 1 Patch TOP ONE (03:00)
[2023-12-23 04:28] LABS: BASOPHILS ABSOLUTE AUTO 0.02 K/mm3 (0.00-0.23); BASOPHILS PERCENT AUTO 0 % (0-2); EOSINOPHILS ABSOLUTE AUTO 0.16 K/mm3 (0.00-0.68); EOSINOPHILS PERCENT AUTO 1 % (0-6); Hematocrit 30.2 % (37.0-53.0); Hemoglobin 9.8 g/dL (13.5-17.5); IMMATURE GRAN ABSOLUTE AUTO 0.42 K/mm3 (0.00-0.10); IMMATURE GRAN PERCENT AUTO 3 % (0-1); LYMPHOCYTES ABSOLUTE AUTO 0.64 K/mm3 (0.84-5.20); LYMPHOCYTES PERCENT AUTO 4 % (21-46); MONOCYTES ABSOLUTE AUTO 0.45 K/mm3 (0.16-1.47); MONOCYTES PERCENT AUTO 3 % (4-13); Mean Corpuscular HGB 34.4 pg (26.0-34.0); Mean Corpuscular HGB Conc 32.5 g/dL (31.5-36.5); Mean Corpuscular Volume 106 fL (80-100); Mean Platelet Volume 10.8 fL (9.1-12.4); NEUTROPHILS ABSOLUTE AUTO 14.15 K/mm3 (1.96-9.15); NEUTROPHILS PERCENT AUTO 89 % (41-73); Platelet Count 333 K/mm3 (150-400); RDW Coefficient Variation 13.9 % (11.7-14.2); RDW Standard Deviation 53.4 fL (35.1-46.3); Red Blood Cell Count 2.85 M/mm3 (4.30-5.90); White Blood Cell Count 15.84 K/mm3 (4.00-11.30)
[2023-12-23 04:47] LABS: Magnesium, Blood 2.3 mg/dL (1.6-2.4)
[2023-12-23 04:48] LABS: Albumin, Blood 1.7 g/dL (3.4-5.0); Albumin/Globulin Ratio 0.4 (0.8-1.8); Bun/Creatinine Ratio 28.2 (12.0-20.0); Calcium, Blood 8.3 mg/dL (8.5-10.1); Creatinine, Blood 0.75 mg/dL (0.60-1.20); Globulin, Blood 4.8 g/dL (2.2-4.0); Phosphorus, Blood 3.1 mg/dL (2.5-4.9); Potassium, Blood 2.9 mmol/L (3.5-5.5); Total Protein, Blood 6.5 g/dL (6.4-8.2)
--- NOTE | 2023-12-23 05:16 | NUR ---
SHIFT SUMMARY PT RESTED QUIETLY T/O NIGHT. PT REMAINS A&O X4. CONTINUES TO COUGH UP THICK PINK SECRETIONS. TYLENOL GIVEN D/T PT BEING FEBRILE; 100.2 AT TIME OF THIS NOTE. NO ACUTE EVENTS OVERNIGHT.
[2023-12-23] MEDS ORDERED: Potassium Chloride 40 MEQ in NS 250 ML IV ONE (05:30)
[2023-12-23] MEDS ORDERED: Empagliflozin 10 MG TAB PO SCH (09:00)
[2023-12-23 09:39] LABS: Vancomycin, Trough 16.7 ug/mL (5.0-10.0)
[2023-12-23] MEDS ORDERED: Enoxaparin 40 MG/0.4 ML SYR SC ONE (11:00)
--- NOTE | 2023-12-23 18:49 | NUR ---
DARWIN HAS BEEN APPROPRIATE FOR THE MAJORITY OF THE DAY. HE CONTINUES WITH IV FLUIDS @ TKO. TEMP 101.2, UP IN RECLINER TODAY. ADVANCED TO PUREED DIET TODAY. DOESN'T LIKE THE FOOD BUT IS HUNGRY. TAKING IN LEMONADE. SEN CATHETER REMOVED AND PT HAS VOIDED BOTH IN THE URINAL AND HAS BEEN INCONTINENT. RIGHT FOOT REMAINS WITH SWELLING AND BRUISING RELATED TO THE FRACTURE. NOT IN TODAY, BUT SPOKE ON THE PHONE WITH PATIENT.
[2023-12-23] MEDS ORDERED: Enoxaparin 80 MG/0.8 ML SYR SC SCH (21:00)
[2023-12-23] MEDS ORDERED: Spironolactone 25 MG Tab PO SCH (21:00)
[2023-12-23] MEDS ORDERED: Losartan Potassium 50 MG Tab PO SCH (21:00)
[2023-12-23] MEDS ORDERED: AmLODIPine Besylate 5 MG Tab PO SCH (21:00)
--- NOTE | 2023-12-23 22:02 | NUR ---
ASSUME CARE NOTE PATIENT AWAKE AND ALERT, ABLE TO ANSWER QUESTIONS AND FOLLOW COMMANDS, BUT WILL TALK ABOUT NONSENICAL THINGS. SAYS HE IS SEEING HORSES, AND OTHER PEOPLE IN THE ROOM. ATTEMPTING TO GET WATER/MILK BY HIMSELF, ASKING ABOUT USING URINAL. COUGHING UP DARK BROWN SECRETIONS IN SMALL AMOUNTS. POWER PICC IN PLACE AND INFUSING, NO FLUSHING ON WHITE PORT. PATIENT GIVEN LOTS OF REASSURANCE AND REORIENTED ABOUT WHERE HE IS.
[2023-12-24] VITALS: BP 140/81
[2023-12-24 03:26] LABS: BASOPHILS ABSOLUTE AUTO 0.04 K/mm3 (0.00-0.23); BASOPHILS PERCENT AUTO 0 % (0-2); EOSINOPHILS ABSOLUTE AUTO 0.16 K/mm3 (0.00-0.68); EOSINOPHILS PERCENT AUTO 1 % (0-6); Hemoglobin 8.7 g/dL (13.5-17.5); IMMATURE GRAN ABSOLUTE AUTO 0.26 K/mm3 (0.00-0.10); IMMATURE GRAN PERCENT AUTO 2 % (0-1); LYMPHOCYTES ABSOLUTE AUTO 0.86 K/mm3 (0.84-5.20); LYMPHOCYTES PERCENT AUTO 7 % (21-46); MONOCYTES ABSOLUTE AUTO 0.42 K/mm3 (0.16-1.47); MONOCYTES PERCENT AUTO 3 % (4-13); Mean Corpuscular HGB Conc 32.2 g/dL (31.5-36.5); Mean Corpuscular Volume 106 fL (80-100); Mean Platelet Volume 10.6 fL (9.1-12.4); NEUTROPHILS ABSOLUTE AUTO 11.49 K/mm3 (1.96-9.15); NEUTROPHILS PERCENT AUTO 87 % (41-73); Platelet Count 328 K/mm3 (150-400); RDW Standard Deviation 54.1 fL (35.1-46.3); Red Blood Cell Count 2.56 M/mm3 (4.30-5.90); White Blood Cell Count 13.23 K/mm3 (4.00-11.30)
[2023-12-24] MEDS ORDERED: OxyCODONE HCL 5 MG TAB PO PRN (03:35)
[2023-12-24 03:44] LABS: Bun/Creatinine Ratio 16.5 (12.0-20.0); Calcium, Blood 7.7 mg/dL (8.5-10.1); Creatinine, Blood 1.03 mg/dL (0.60-1.20); Phosphorus, Blood 3.4 mg/dL (2.5-4.9); Potassium, Blood 2.6 mmol/L (3.5-5.5)
[2023-12-24 04:12] VITALS: BP 168/92
--- NOTE | 2023-12-24 04:14 | NUR ---
SHIFT NOTE PATIENT SLEEPING WELL FOR APPROXIMATELY 4 HOURS, AND THEN WAKING UP AND WANTING WATER. COMPLAINING THAT MOUTH IS REALLY DRY AND TRYING TO TELL HIM THAT IT WILL TAKE TIME TO GET HIS MOUTH MOIST AGAIN. PATIENT EDUCATION REINFORCED, BUT PATIENT NOT BELIEVING IT. MEDICATED EARLIER IN SHIFT FOR PAIN, AND PAIN MEDICATION OFFERED AGAIN, BUT REFUSING AT THIS TIME.
[2023-12-24] MEDS ORDERED: Potassium Chloride 20 MEQ TabCR PO SCH (06:00)
--- NOTE | 2023-12-24 06:24 | NUR ---
SHIFT SUMMARY, PATIENT MORNING POTASSIUM 2.6, SPOKE TO DR. JERNIGAN AND NEW ORDERS NOTED. ORDERS FOR PO POTASSIUM NOTED AND PATIENT MEDICATED FOR PAIN AND AWAITING RESULTS.
[2023-12-24 08:00] VITALS: BP 180/111
[2023-12-24] MEDS ORDERED: Dextrose 5% 1,000 ML IV SCH (10:15)
[2023-12-24 12:00] VITALS: BP 116/75
--- NOTE | 2023-12-24 13:38 | NUR ---
DARWIN WORKED WITH BOTH SPEECH AND OCCUPATIONAL THERAPY. HE THEN RECEIVED HIS TORADOL SHOT AND ASKED TO TAKE A NAP AFTER BEING GIVEN SOME EAR PLUGS. HE HAS BEEN SLEEPING FOR ABOUT 2 HOURS. VITAL SIGNS STABLE, PT CONTINUES TO APPEAR COMFORTABLE. HE WAS VERY UPSET AFTER SPEECH THERAPY THIS AM THAT HE WOULD REQUIRE THICKENED LIQUIDS. THIS UPSET HIM AND HE WAS FIXATED ON IT FOR A PERIOD OF TIME. WAS AT BEDSIDE, TRYING TO ENCOURAGE HIM. HE DID LIKE THE [place] BEVERAGE. MEDS GIVEN WHOLE IN APPLESAUCE, HE TOLERATES WELL. IV FLUIDS STARTED PER ORDERS.
[2023-12-24 16:00] VITALS: BP 141/88
[2023-12-24 16:54] LABS: Bun/Creatinine Ratio 14.5 (12.0-20.0); Calcium, Blood 7.8 mg/dL (8.5-10.1); Creatinine, Blood 1.1 mg/dL (0.60-1.20); Potassium, Blood 3.1 mmol/L (3.5-5.5)
[2023-12-24 16:55] LABS: Hematocrit 27.9 % (37.0-53.0); Hemoglobin 8.9 g/dL (13.5-17.5)
[2023-12-24] MEDS ORDERED: Nystatin 100,000 Unit/ML Susp 5 ML UDC SS SCH (17:00)
--- NOTE | 2023-12-24 18:29 | NUR ---
DARWIN REMAINS ON NC @ 3L, HE HAD ONE LITER OF D5 @ 120. HE HAS HAD HIS ANTIBIOTICS, WORKED WITH ALL THERAPY AND TOOK A NAP. HE HAS BEEN TAKING IN THICKENED LIQUIDS, TO HIS DISLIKING. ENCOURAGEMENT GIVEN. HE HAD A BRIEF PERIOD OF CONFUSION, DISORIENTATION BUT HAS REMAINED A/O WITH REMEMBERING NAMES OF STAFF, AND SITUATIONS REGARDING THE DAY. HE WANTS TO GET STRONGER AND WORK HARDER. HE IS GIVEN ARM EXERCISES AND ENCOURAGED TO DO ALL HIS OWN MOVING. HE CONTINUES WITH THE TREMORS, WHICH MAKE HIM IRRITATED WELL. POST OP SHOE OBTAINED FOR RIGHT FOOT PER RECOMMENDATION OF THERAPY. HE WAS ABLE TO STAND TODAY. LUNGS REMAIN COARSE AND IS ABLE TO EXPECTORATE USING TISSUE NOW.
[2023-12-24 20:00] VITALS: BP 152/82
[2023-12-24] MEDS ORDERED: QUEtiapine Fumarate 50 MG TAB PO SCH (21:00)
[2023-12-25] VITALS (10 sets, daily range): BP systolic 122–164; BP diastolic 78–107
--- NOTE | 2023-12-25 03:21 | NUR ---
SHIFT SUMMARY, PATIENT SLEEPING OFF AND ON, MEDICATED FOR PAIN ONCE WITH IMPROVED RESULTS. PATIENT WITH LESS TREMORS NOTED AND BETTER EYE HAND COORDINATION. SPOKE TO AND UPDATED TO STATUS.
[2023-12-25 03:52] LABS: BASOPHILS ABSOLUTE AUTO 0.03 K/mm3 (0.00-0.23); BASOPHILS PERCENT AUTO 0 % (0-2); EOSINOPHILS PERCENT AUTO 2 % (0-6); Hematocrit 23.6 % (37.0-53.0); Hemoglobin 7.5 g/dL (13.5-17.5); IMMATURE GRAN ABSOLUTE AUTO 0.15 K/mm3 (0.00-0.10); IMMATURE GRAN PERCENT AUTO 1 % (0-1); LYMPHOCYTES ABSOLUTE AUTO 0.66 K/mm3 (0.84-5.20); LYMPHOCYTES PERCENT AUTO 6 % (21-46); MONOCYTES ABSOLUTE AUTO 0.32 K/mm3 (0.16-1.47); MONOCYTES PERCENT AUTO 3 % (4-13); Mean Corpuscular HGB 33.9 pg (26.0-34.0); Mean Corpuscular HGB Conc 31.8 g/dL (31.5-36.5); Mean Corpuscular Volume 107 fL (80-100); Mean Platelet Volume 10.8 fL (9.1-12.4); NEUTROPHILS ABSOLUTE AUTO 9.01 K/mm3 (1.96-9.15); NEUTROPHILS PERCENT AUTO 87 % (41-73); Platelet Count 299 K/mm3 (150-400); RDW Coefficient Variation 13.8 % (11.7-14.2); RDW Standard Deviation 53.2 fL (35.1-46.3); Red Blood Cell Count 2.21 M/mm3 (4.30-5.90); White Blood Cell Count 10.37 K/mm3 (4.00-11.30)
[2023-12-25 04:13] LABS: Bun/Creatinine Ratio 15.6 (12.0-20.0); Calcium, Blood 7.2 mg/dL (8.5-10.1); Creatinine, Blood 0.9 mg/dL (0.60-1.20); Magnesium, Blood 1.8 mg/dL (1.6-2.4); Phosphorus, Blood 2.8 mg/dL (2.5-4.9); Potassium, Blood 2.5 mmol/L (3.5-5.5)
[2023-12-25] MEDS ORDERED: Potassium Chloride 20 MEQ TabCR PO SCH (06:00)
--- NOTE | 2023-12-25 07:35 | NUR ---
ASSUMPTION OF CARE PT IS RESTING IN BED, AWAKE AND ALERT. INTRODUCES HIMSELF TO RN DURING BEDSIDE SHIFT REPORT. SR, BP WNL. EDEMA IMPROVING. CONTINUES WITH THICK, [place] SECRETIONS BUT IS EXPECTORATING WELL. O2 SAT > 94% ON 3L NC. EATING A MOIST/MINCED DIET, TOLERATING WELL. INCONTINENT OF URINE, CURRENTLY HAS BRIEF ON. SKIN INTACT WITH SCATTERED BRUISING. PICC LINE WITH 1 PORT OCCLUDED PER REPORT. NS @ TKO WITH MULT IV ATB. NO FAMILY CURRENTLY AT BEDSIDE. POC ONGOING.
[2023-12-25 10:20] LABS: Vancomycin, Trough 22.7 ug/mL (5.0-10.0)
[2023-12-25 15:19] LABS: Bun/Creatinine Ratio 12.5 (12.0-20.0); Calcium, Blood 8.4 mg/dL (8.5-10.1); Creatinine, Blood 0.96 mg/dL (0.60-1.20); Potassium, Blood 3.5 mmol/L (3.5-5.5)
--- NOTE | 2023-12-25 15:36 | NUR ---
DARWIN ARRIVED AT [facility] AROUND 1515, ACCOMPANIED BY HIS LI, 148/96, TEMP 100.3, SATS 97% ON 4L. REQUESTS APPLE JUICE. MOVING ALL EXTREMITIES, BILAT EDEMA OF FEET/ANKLES
[2023-12-25] MEDS ORDERED: Vancomycin HCL 1,000 MG in NS 100 ML IV SCH (16:00)
--- NOTE | 2023-12-25 16:23 | NUR ---
PT TRANSFERRED TO PCU 4 ACCOMPANIED BY RN, ON 4L NC, TRANSPORTED IN HOSPITAL BED, AT BEDSIDE. ALL BELONGINGS BROUGHT WITH PT. REPORT CALLED TO STEFANIE SHEEHAN. REMAINS A/OX4. SR, BP WNL. ON 4L NC, LUNGS COARSE THROUGHOUT. TOLERATING MINCED/MOIST DIET, APPETITE POOR. REQUESTS APPLE JUICE CONSTANTLY. VEGAN NUTRITION SHAKES PROVIDED, PT STATES HE DOES NOT LIKE THE [place] FLAVOR, DIETARY DEPARTMENT TO ORDER CHOCOLATE. CONTINUES TO BE INTERMITTENLY INCONTINENT OF URINE. VOIDS USING THE URINAL AT TIMES, HAS URGENCY AND FREQUENCY. SKIN INTACT WITH SCATTERED BRUISING. PICC LINE TO RIGHT UPPER ARM, ALL PORTS FLUSH, 1 WITH SLUGGISH BLOOD RETURN. UPDATED VIA PHONE AND THEN CAME TO BEDSIDE TO VISIT. POC ONGOING.
--- NOTE | 2023-12-25 18:25 | NUR ---
DARWIN IS MOVING HIS EXTREMITIES WELL TODAY, HE IS TRYING TO USE HIS URINAL INDE- PENDENTLY, TRIED TO USE THE BEDPAN, FLATUS ONLY. CONTINUES TO TAKE IN THICK LIQUIDS, WITH COMPLAINTS. LUNG SOUNDS COARSE, COUGH WITH GOOD PRODUCTION, USES TISSUE. HEART RATE SINUS, 80S. HEAD AND FACE CLIPPED BY PRIOR TO HER LEAVING. USING HIS CALL LIGHT APPROPRIATELY. PICC TO RIGHT UPPER ARM USED FOR ANTIBIOTICS, ALL 3 PORTS FLUSHED. WHITE PORT HARD TO PUSH BUT FLUSHES. NO OTHER CHANGES. SEE FLOWSHEET FOR VITALS.
[2023-12-25] MEDS ORDERED: NS 250 ML IV PRN (23:45)
[2023-12-25] MEDS ORDERED: Piperacillin/Tazobactam Sod 4.5 GM ONE (23:51)
[2023-12-26] VITALS: BP 142/86
[2023-12-26 03:40] VITALS: BP 133/83
[2023-12-26 03:55] LABS: BASOPHILS ABSOLUTE AUTO 0.04 K/mm3 (0.00-0.23); BASOPHILS PERCENT AUTO 0 % (0-2); EOSINOPHILS PERCENT AUTO 3 % (0-6); Hematocrit 27.7 % (37.0-53.0); IMMATURE GRAN PERCENT AUTO 1 % (0-1); LYMPHOCYTES ABSOLUTE AUTO 0.91 K/mm3 (0.84-5.20); LYMPHOCYTES PERCENT AUTO 9 % (21-46); MONOCYTES ABSOLUTE AUTO 0.32 K/mm3 (0.16-1.47); MONOCYTES PERCENT AUTO 3 % (4-13); Mean Corpuscular HGB Conc 32.5 g/dL (31.5-36.5); Mean Corpuscular Volume 105 fL (80-100); Mean Platelet Volume 10.6 fL (9.1-12.4); NEUTROPHILS ABSOLUTE AUTO 8.93 K/mm3 (1.96-9.15); NEUTROPHILS PERCENT AUTO 84 % (41-73); Platelet Count 390 K/mm3 (150-400); RDW Coefficient Variation 13.3 % (11.7-14.2); RDW Standard Deviation 50.3 fL (35.1-46.3); Red Blood Cell Count 2.65 M/mm3 (4.30-5.90)
[2023-12-26 04:25] LABS: Albumin, Blood 1.9 g/dL (3.4-5.0); Anion Gap 7 mmol/L (3-11); Blood Urea Nitrogen 11 mg/dL (8-24); Bun/Creatinine Ratio 10.5 (12.0-20.0); CO2, Blood 27 mmol/L (21-32); Calcium, Blood 8.3 mg/dL (8.5-10.1); Chloride, Blood 112 mmol/L (98-108); Creatinine, Blood 1.05 mg/dL (0.60-1.20); Glomerular Filtration Rate 81 (60-); Glucose, Blood 115 mg/dL (70-99); Phosphorus, Blood 2.6 mg/dL (2.5-4.9); Potassium, Blood 3.2 mmol/L (3.5-5.5); Sodium, Blood 143 mmol/L (136-145)
--- NOTE | 2023-12-26 05:16 | NUR ---
SHIFT SUMMARY ASSUMED CARE OF PT AT 1900. PT IS A/OX4 BUT HAS A STUTTER AND TROUBLE FINDING WORDS. HEART SOUNDS REGULAR. LUNG SOUNDS HAVE CRACKELS IN BASES. PT TITRATED FROM 4-2L NC. PT USED URINAL IN BED WITH ONCE ACCIDENT. PT WANTS TO GET IN SHOWER AND PRACTICE WALKING TODAY.
[2023-12-26] MEDS ORDERED: Potassium Chloride 20 MEQ TabCR PO ONE (07:00)
[2023-12-26 07:26] VITALS: BP 140/90
--- NOTE | 2023-12-26 10:14 | NUR ---
AM NOTES; NO ACUTE CHANGE THIS MORNING, PT TRANSITIONED TO MEDICAL STATUS WITH TELE PER DR JIMÉNEZ. PT ALERT AND ORIENTED X3-4, ABLE TO ANSWER QUESTIONS APPROPRIATELY, STUTTERS AT TIMES. VITALS HAS BEEN STABLE. SPEECH THERAPIST ABLE TO RE-EVALUATE PT THIS MORNING DIET ADVANCED TO SOFT BITE SIE DIET AND THIN LIQUIDS WITH NO STRAWS. PT HAS BEEN USING URINAL IN BED. PT NOW BACK IN BED RESTING, DENIES ANY PAIN/SOB AT THIS TIME, ABLE TO TITRATE O2 TO ROOMAIR SATS KEPT ABOVE 95% ON ROOMAIR. NO OTHER ISSUES ENCOUNTERED WILL CONTINUE TO MONITOR
[2023-12-26 15:06] VITALS: BP 149/102
--- NOTE | 2023-12-26 16:00 | NUR ---
SUMMARY; PT ABLE TO TRANSFER TO RECLINER AND STAYED FOR A COUPLE OF HOURS 2PA VIA FWW AND GAIT BELT. PT WAS SHAKY AND WEAK ON BOTH BILAT EXT. BED BATH COMPLETED. PT REMAINED ALERT AND ORIENTED, ABLE TO MAKE NEEDS KNOWN. VITALS HAS BEEN STABLE. TOLERATED DIET. NO OTHER ISSUES ENCOUNTERED FOR THE SHIFT, MEDICATED FOR PAIN X1. REPORT GIVEN TO ÁNGELA WATTS, PT TO TRANSFER TO RM 325. ALL BELONGINGS SENT WITH THE PT
--- NOTE | 2023-12-26 19:38 | NUR ---
PT TRANSFERRED TO ROOM 325 AT 1615 FROM PCU. BED/BED SWAP. PT ORIENTED TO ROOM AND CALL LIGHT. ACCOMPANYING PT, INVOLVED IN POC
--- NOTE | 2023-12-26 19:39 | NUR ---
SUMMARY- PT A/O X3-4, NOT ORIENTED TO DETAILS. TOLERATING FOOD AND FLUID. PT WEANED OFF O2 IN PCU TODAY, IS NOW ON ROOM AIR SATTING MID S. CHRONIC PAIN IN BACK CONTROLLED WITH OXYCODONE Q6. TELE SR, STARTING ELOQUIS TONIGHT. BP STABLE, MARGIONALLY HIGH. REPORTED TO NOC STEFANIE MERCADO
[2023-12-26 19:41] VITALS: BP 139/98
[2023-12-26] MEDS ORDERED: Apixaban 5 MG Tab PO SCH (21:00)
[2023-12-27 03:42] VITALS: BP 123/81
[2023-12-27 04:16] LABS: Hematocrit 26.2 % (37.0-53.0); Hemoglobin 8.7 g/dL (13.5-17.5)
[2023-12-27 04:41] LABS: Albumin, Blood 1.9 g/dL (3.4-5.0); Albumin/Globulin Ratio 0.4 (0.8-1.8); Bilirubin, Total 0.9 mg/dL (0.1-1.0); Bun/Creatinine Ratio 8.3 (12.0-20.0); Calcium, Blood 8.5 mg/dL (8.5-10.1); Creatinine, Blood 1.08 mg/dL (0.60-1.20); Globulin, Blood 4.8 g/dL (2.2-4.0); Potassium, Blood 3.1 mmol/L (3.5-5.5); Total Protein, Blood 6.7 g/dL (6.4-8.2)
--- NOTE | 2023-12-27 06:16 | NUR ---
SHIFT SUMMARY 58 YR M ADMITTED ON 12/11/23. FULL CODE. NO ACUTE CHANGES THIS SHIFT. PT ASKED TO USE A BEDPAN STATING HE IS TOO WEAK TO STAND. HE HAD A NORMAL SIZE BM. STAYED THE NIGHT IN THE ROOM WITH HIM. PT APPEARS TO BE COMFORTABLE. HE IS PLEASANT AND COOPERATIVE WITH CARE. BED IN LOW POSITION AND CALL LIGHT IN REACH. WILL CONTINUE TO MONITOR.
[2023-12-27 07:50] VITALS: BP 124/87
[2023-12-27] MEDS ORDERED: Metoprolol Succinate 25 MG TABCR PO SCH ×2 (09:00)
[2023-12-27] MEDS ORDERED: Bisacodyl 5 MG TabEC PO PRN (10:15)
[2023-12-27] MEDS ORDERED: OxyCODONE HCL 5 MG TAB PO PRN (11:45)
[2023-12-27 15:17] VITALS: BP 148/84
--- NOTE | 2023-12-27 17:38 | NUR ---
SUMMARY- PT A/O X4. RESP EVEN UNLABORED. PT HAS BEEN ON ROOM AIR ANS SATTING 94-96%. PT GOT OUT OF BED 1500- 2 PERSON GAIT BELT PIVOT TX. PT WAS ABLE TO BEAR WEIGHT AND STAND FOR A 1 MIN PERIOD X2. ONCE GETTING ONTO BEDSIDE COMMODE AND HAD A LG SOFT BROWN STOOL. HAS BEEN CONT OF URINE IN URINAL. TOLERATING FOOD AND FLUID. PT IS MOTIVATED TO AMBULATE SO HE CAN GO HOME AND NOT INTO SNF. BACK TO BED AT 1730 AFTER DINNER. CHRONIC PAIN CONTROLLED WITH OXYCODONE 5MG, GOT FREQ DECREASED TO 4 HOURS INSTEAD OF 6HRS PT'S PAIN NOT CONTROLLED BEFORE NEXT DOSE. EVERY 4 HOURS, PT STATES IS SUFFICIENT PAIN RELEIF. DR BOLAÑOS OBTAINED A XRAY AND ORDERED A SHOE. PT CAN F/U OUTPATIENT. WILL REPORT TO NOC SETFANIE
[2023-12-27 20:11] VITALS: BP 135/85
[2023-12-27] MEDS ORDERED: Docusate Sodium 100 MG Cap PO SCH (21:00)
[2023-12-27] MEDS ORDERED: TRIDERM28.4 GM TOP (23:35)
[2023-12-27] MEDS ORDERED: [UNRECOGNIZED DRUG - CODE] PO (23:38)
[2023-12-28 03:12] VITALS: BP 123/82
[2023-12-28 03:48] LABS: Hematocrit 26.2 % (37.0-53.0); Hemoglobin 8.6 g/dL (13.5-17.5); Mean Corpuscular HGB 33.7 pg (26.0-34.0); Mean Corpuscular HGB Conc 32.8 g/dL (31.5-36.5); Mean Corpuscular Volume 103 fL (80-100); Platelet Count 471 K/mm3 (150-400); RDW Standard Deviation 48.3 fL (35.1-46.3); Red Blood Cell Count 2.55 M/mm3 (4.30-5.90); White Blood Cell Count 8.48 K/mm3 (4.00-11.30)
[2023-12-28 04:08] LABS: Bun/Creatinine Ratio 8.4 (12.0-20.0); Calcium, Blood 8.1 mg/dL (8.5-10.1); Creatinine, Blood 0.95 mg/dL (0.60-1.20); Potassium, Blood 3.1 mmol/L (3.5-5.5)
--- NOTE | 2023-12-28 05:25 | NUR ---
SUMMARY: PT A/OX4, CALLS APPROPRIATELY TO SPECIFY NEEDS AND IS PLEASANT AND COOPERATIVE W/CARE. HE'S USED URINAL IN BED T/O NOCTE AND IS UP W/2PA, FWW AND GB D/T TREMOR AND DECONDITIONING. PT DOESN'T WANT TO D/C TO SNF SO REPORTED BEING MOTIVATED TO INCREASE STRENGTH AND MOBILITY. PRN OXYCODONE RECEIVED FOR TOLERABLE RELIEF OF CHRONIC BACK PAIN. DYSPHAGIA DIET MAINTAINED AND PILLS TOLERATED CRUSHED IN PUDDING. HE WAS REMINDED NOT TO USE STRAWS AFTER BEING OBSERVED COUGHING FOLLOWING DRINKING W/ONE AND HAS BEEN COMPLIANT SINCE RECEIVING ADDITIONAL EDUCATION. THIS RN NICHOLE AM LABS FROM PICC W/O ISSUE AFTER RECEIVING REPORT IT DIDN'T DRAW. NO ACUTE CHANGES, VSS/AFEBRILE. WCTM AND REPORT TO DAY RN.
--- NOTE | 2023-12-28 05:47 | NUR ---
ASSUMED CARE OF PT WHILE PRIMARY RN ON BREAK. CALL LIGHT WITHIN REACH.
[2023-12-28] MEDS ORDERED: Potassium Chloride 40 MEQ in NS 250 ML IV ONE (08:15)
[2023-12-28 08:34] VITALS: BP 128/88
[2023-12-28 14:57] VITALS: BP 132/84
--- NOTE | 2023-12-28 15:14 | NUR ---
DIET OFFICE CALLED WITH CONCERN WITH PT DIET AND FOOD CHOICES A VEGAN/SOFT BITE SIZE. UTILIZATION SPECIALIST CONSULTED. SPEECH THERAPY IS NOT AVAILABLE AT THIS TIME TO DISCUSS CONCERN WITH.
--- NOTE | 2023-12-28 16:22 | NUR ---
SUMMARY PT IS ALERT AND ORIENTED X3-4. ABLE TO MAKE NEEDS KNOWN. IS VERY MOTIVATED TO STAY OUT OF SNF. PT WORKED WITH PT/OT TODAY. FEBRILE THIS AFTERNOON. NON SYMPTOMATIC. VEGAN DIET. DIETITIAN CONSULTED TODAY. BED IS IN THE LOWEST POSITION WITH CALL LIGHT IN REACH. PAIN TREATED PER EMAR
[2023-12-28 20:08] VITALS: BP 116/80
[2023-12-28] MEDS ORDERED: Loperamide HCl 2 MG Cap PO ONE (21:30)
[2023-12-29 03:02] VITALS: BP 112/67
[2023-12-29 06:02] LABS: BASOPHILS ABSOLUTE AUTO 0.03 K/mm3 (0.00-0.23); BASOPHILS PERCENT AUTO 0 % (0-2); EOSINOPHILS ABSOLUTE AUTO 0.29 K/mm3 (0.00-0.68); EOSINOPHILS PERCENT AUTO 3 % (0-6); Hematocrit 26.9 % (37.0-53.0); Hemoglobin 8.8 g/dL (13.5-17.5); IMMATURE GRAN ABSOLUTE AUTO 0.06 K/mm3 (0.00-0.10); IMMATURE GRAN PERCENT AUTO 1 % (0-1); LYMPHOCYTES ABSOLUTE AUTO 1.19 K/mm3 (0.84-5.20); LYMPHOCYTES PERCENT AUTO 13 % (21-46); MONOCYTES ABSOLUTE AUTO 0.56 K/mm3 (0.16-1.47); MONOCYTES PERCENT AUTO 6 % (4-13); Mean Corpuscular HGB 33.7 pg (26.0-34.0); Mean Corpuscular HGB Conc 32.7 g/dL (31.5-36.5); Mean Corpuscular Volume 103 fL (80-100); Mean Platelet Volume 9.8 fL (9.1-12.4); NEUTROPHILS ABSOLUTE AUTO 7.35 K/mm3 (1.96-9.15); NEUTROPHILS PERCENT AUTO 78 % (41-73); Platelet Count 524 K/mm3 (150-400); RDW Coefficient Variation 13.2 % (11.7-14.2); RDW Standard Deviation 48.6 fL (35.1-46.3); Red Blood Cell Count 2.61 M/mm3 (4.30-5.90); White Blood Cell Count 9.48 K/mm3 (4.00-11.30)
--- NOTE | 2023-12-29 06:04 | NUR ---
SUMMARY: PT A/OX4, CALLS APPROPRIATELY TO SPECIFY NEEDS AND IS PLEASANT AND COOPERATIVE W/CARE. HE USED URINAL IN BED AND IS 1PA OOB W/FWW AND GB R/T TREMORS AND DECONDITIONING. PT C/O DIARRHEA THIS SHIFT SO BOWEL MEDS WERE HELD AND IMODIUM 4MG PO X1 WAS RX'D AND RECEIVED FOR RELIEF. HE REMAINS MOTIVATED TO INCREASE STRENGTH AND MOBILITY TO AVOID D/C TO SNF. PT C/O CHRONIC BACK PAIN W/PRN OXYCODONE RECEIVED FOR GOOD AFFECT. HE'S BEEN MORE COMPLIANT W/DYSPHAGIA DIET TONIGHT AND TOLERATED PILLS CRUSHED IN PUDDING. REPEAT CXR WAS COMPLETED AND PERSISTENT R.PLEURAL EFFUSION WAS OBSERVED. NO ACUTE CHANGES, VSS/AFEBRILE. WCTM AND REPORT TO DAY RN.
[2023-12-29 06:21] LABS: Anion Gap 11 mmol/L (3-11); Blood Urea Nitrogen 7 mg/dL (8-24); Bun/Creatinine Ratio 7.2 (12.0-20.0); CO2, Blood 26 mmol/L (21-32); Calcium, Blood 8.5 mg/dL (8.5-10.1); Chloride, Blood 106 mmol/L (98-108); Creatinine, Blood 0.98 mg/dL (0.60-1.20); Glomerular Filtration Rate 88 (60-); Glucose, Blood 108 mg/dL (70-99); Phosphorus, Blood 3.2 mg/dL (2.5-4.9); Potassium, Blood 3.5 mmol/L (3.5-5.5); Sodium, Blood 139 mmol/L (136-145)
[2023-12-29 07:07] LABS: IMMATURE RETIC FRACTION 33.4 % (2.3-16.0); RETICULOCYTE ABSOLUTE 0.0881 M/mm3 (0.0200-0.1100); RETICULOCYTE COUNT PERCENT 3.35 % (0.50-2.50)
[2023-12-29 07:56] VITALS: BP 111/69
[2023-12-29] MEDS ORDERED: Cholecalciferol 1000 Unit Tablet (=25MCG) PO SCH (09:00)
[2023-12-29 15:21] VITALS: BP 107/74
--- NOTE | 2023-12-29 16:58 | NUR ---
PT AOX4 AND COOPERATIVE OF CARE NO DISTRESS NOTED. NO ACUTE CHANGES AT THIS TIME. PT TREATED FOR PAIN PER EMAR. PT WORKED WELL TODAY WITH PT/OT AND WAS WAS ABLE TO BE A ONE ASSIST TO SHOWER. WILL CONTINUE TO MONITOR.
[2023-12-29 20:00] VITALS: BP 122/79
--- NOTE | 2023-12-30 05:08 | NUR ---
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 SIGNIFICANT OTHER IS AT BED SIDE. PATIENT GETS UP WITH ONE ASSIST AND IS AWARE TO CALL WHEN HE NEEDS HELP. COMPLAINED OF PAIN AND PRN PAIN MEDS WERE GIVEN. PATIENT DIET IS THIN LIQUID WITH NO SCREW, TAKES PILLS CRUSHED WITH PUDDING/APPLESOURCE.
[2023-12-30 05:18] VITALS: BP 110/67
[2023-12-30 08:25] VITALS: BP 98/71
[2023-12-30] MEDS ORDERED: AMLO5 PO (14:39)
[2023-12-30] MEDS ORDERED: ELIQUIS5 M2 PO (14:40)
[2023-12-30] MEDS ORDERED: JARDIANCE10 MG PO (14:41)
[2023-12-30] MEDS ORDERED: LIDO700A20 TOP (14:41)
[2023-12-30] MEDS ORDERED: B-COMPLEX WITH1 EAC2 PO (14:41)
[2023-12-30] MEDS ORDERED: NYSTATIN100000 U10 MT (14:42)
[2023-12-30] MEDS ORDERED: METO25ER PO (14:42)
[2023-12-30] MEDS ORDERED: LOSARTAN POTASS50 M1 PO (14:42)
[2023-12-30] MEDS ORDERED: Seroquel Xr50 MG PO (14:43)
[2023-12-30] MEDS ORDERED: SPIR25 PO (14:43)
[2023-12-30] MEDS ORDERED: B-1100 M1 PO (14:43)
[2023-12-30] MEDS ORDERED: VITAMIN D31000 UNI1 PO (14:44)
--- NOTE | 2023-12-30 15:39 | NUR ---
PT DISCHARGED VIA WHEELCHAIR TRANSPORT. WAS IN ROOM DURING DISCHARGE. PACKET REVIEWED AND EDUCATIONAL MATERIAL SENT WITH PT. ALL PERSONAL BELONGINGS COLLECTED AND TAKEN WITH FAMILY. PT HAS BEEN AOX4 AND COOPERATIVE OF CARE. PT WAS ABLE TO DO SOME WORK WITH OT PRIOR TO DISCHARGE.
[2024-01-02] MEDS ORDERED: Apixaban 5 MG Tab PO SCH (21:00)
== END 2023-12-30 15:14 | disposition home health service (06) | DRG 896 ==
LOC: ER 06:31 → ICUE 11:33 → PCU 11:33 → MEDS 11:33 → ICUE 12:57 → PCU 12-25 15:15 → MEDS 12-26 16:14
PROVIDERS: Family Medicine; Family Medicine Adult Medicine; Hospitalist; Internal Medicine; Internal Medicine Critical Care Medicine; Student in an Organized Health Care Education/Training Program; ADMIT Internal Medicine
PROC: HZ2ZZZZ Detoxification Services for Substance Abuse Treatment (ICD-10-PCS; 2023-12-11)
PROC: 5A1955Z Respiratory Ventilation, Greater than 96 Consecutive Hours (ICD-10-PCS; 2023-12-11)
PROC: 0BH17EZ Insertion of Endotracheal Airway into Trachea, Via Natural or Artificial Opening (ICD-10-PCS; 2023-12-11)
PROC: 0DH67UZ Insertion of Feeding Device into Stomach, Via Natural or Artificial Opening (ICD-10-PCS; 2023-12-11)
PROC: 02HV33Z Insertion of Infusion Device into Superior Vena Cava, Percutaneous Approach (ICD-10-PCS; 2023-12-11)
PROC: 3E03329 Introduction of Other Anti-infective into Peripheral Vein, Percutaneous Approach (ICD-10-PCS; principal; 2023-12-13)
PROC: 3E033XZ Introduction of Vasopressor into Peripheral Vein, Percutaneous Approach (ICD-10-PCS; 2023-12-13)
PROC: 4A033R1 Measurement of Arterial Saturation, Peripheral, Percutaneous Approach (ICD-10-PCS; 2023-12-15)
PROC: 5A0935A Assistance with Respiratory Ventilation, Less than 24 Consecutive Hours, High Flow/Velocity Cannula (ICD-10-PCS; 2023-12-22)
DX: F10.231 Alcohol dependence with withdrawal delirium (principal); A41.50 Gram-negative sepsis, unspecified; J15.1 Pneumonia due to Pseudomonas; J96.01 Acute respiratory failure with hypoxia; R65.21 Severe sepsis with septic shock; G93.41 Metabolic encephalopathy; I26.99 Other pulmonary embolism without acute cor pulmonale; M62.82 Rhabdomyolysis; N17.9 Acute kidney failure, unspecified; I42.6 Alcoholic cardiomyopathy; E87.0 Hyperosmolality and hypernatremia; R56.9 Unspecified convulsions; E83.39 Other disorders of phosphorus metabolism; S92.411A Displaced fracture of proximal phalanx of right great toe, initial encounter for closed fracture; R94.31 Abnormal electrocardiogram [ECG] [EKG]; R74.8 Abnormal levels of other serum enzymes; B19.20 Unspecified viral hepatitis C without hepatic coma; I11.0 Hypertensive heart disease with heart failure; E87.6 Hypokalemia; R93.2 Abnormal findings on diagnostic imaging of liver and biliary tract; Z98.890 Other specified postprocedural states; X58.XXXA Exposure to other specified factors, initial encounter; Z87.891 Personal history of nicotine dependence; Z88.2 Allergy status to sulfonamides; Z88.8 Allergy status to other drugs, medicaments and biological substances; Z87.19 Personal history of other diseases of the digestive system; Z79.51 Long term (current) use of inhaled steroids; Z79.899 Other long term (current) drug therapy; Z79.2 Long term (current) use of antibiotics
CPT/HCPCS: 31500; 31720; 36415; 36556; 36569; 36600; 51702; 70450; 70496; 71045; 71046; 71260; 73630; 74018; 76705; 80048; 80053; 80069; 80202; 81001; 82330; 82550; 82607; 82746; 82803; 82947; 83036; 83605; 83735; 84100; 84145; 85014; 85018; 85025; 85027; 85045; 87040; 87070; 87077; 87086; 87186; 87205; 87493; 92526; 92610; 93005; 93010; 93306; 93308; 93321; 94002; 94003; 94640; 94664; 94760; 94762; 96361-59; 96374-59; 96375-59; 96376-59; 97110; 97116; 97162; 97166; 97530; 97535; 99291-25; 99292; A9270; C1751; C9113; J0330; J0360; J0612; J1630; J1650; J1720; J1885; J1940; J2060; J2543; J2560; J2704; J3010; J3370; J3411; J3475; J3480; J7030; J7050; J7060; J7070; J7120; P9047; Q9967

== ENCOUNTER 2024-01-06 18:04 | Inpatient (IN) | payer OTHER ==
[~2024-01-06] VITALS: Ht 177.8 cm; Wt 74.1 kg
[~2024-01-06 18:04] MED LIST changes: +AMLO5 PO; +B-1100 M1 PO; +B-COMPLEX WITH1 EAC2 PO; +ELIQUIS5 M2 PO; +JARDIANCE10 MG PO; +LIDO700A20 TOP; +LOSARTAN POTASS50 M1 PO; +METO25ER PO; +NYSTATIN100000 U10 MT; +SPIR25 PO; +Seroquel Xr50 MG PO; +TRIDERM28.4 GM TOP; +VITAMIN D31000 UNI1 PO; +[UNRECOGNIZED DRUG - CODE] PO
[2024-01-06] MEDS ORDERED: METO25ER PO (18:19)
[2024-01-06 18:58] LABS: BASOPHILS ABSOLUTE AUTO 0.03 K/mm3 (0.00-0.23); BASOPHILS PERCENT AUTO 0 % (0-2); EOSINOPHILS ABSOLUTE AUTO 0.49 K/mm3 (0.00-0.68); EOSINOPHILS PERCENT AUTO 7 % (0-6); Hematocrit 29.7 % (37.0-53.0); Hemoglobin 9.6 g/dL (13.5-17.5); IMMATURE GRAN ABSOLUTE AUTO 0.04 K/mm3 (0.00-0.10); IMMATURE GRAN PERCENT AUTO 1 % (0-1); LYMPHOCYTES ABSOLUTE AUTO 1.63 K/mm3 (0.84-5.20); LYMPHOCYTES PERCENT AUTO 22 % (21-46); MONOCYTES ABSOLUTE AUTO 0.59 K/mm3 (0.16-1.47); MONOCYTES PERCENT AUTO 8 % (4-13); Mean Corpuscular HGB Conc 32.3 g/dL (31.5-36.5); Mean Corpuscular Volume 102 fL (80-100); Mean Platelet Volume 8.8 fL (9.1-12.4); NEUTROPHILS ABSOLUTE AUTO 4.52 K/mm3 (1.96-9.15); NEUTROPHILS PERCENT AUTO 62 % (41-73); Platelet Count 361 K/mm3 (150-400); RDW Coefficient Variation 12.7 % (11.7-14.2); RDW Standard Deviation 46.4 fL (35.1-46.3); Red Blood Cell Count 2.91 M/mm3 (4.30-5.90)
[2024-01-06 19:08] LABS: Albumin, Blood 2.4 g/dL (3.4-5.0); Albumin/Globulin Ratio 0.5 (0.8-1.8); Bilirubin, Total 0.3 mg/dL (0.1-1.0); Bun/Creatinine Ratio 7.8 (12.0-20.0); Calcium, Blood 8.4 mg/dL (8.5-10.1); Creatinine, Blood 0.9 mg/dL (0.60-1.20); Globulin, Blood 5.3 g/dL (2.2-4.0); Potassium, Blood 3.9 mmol/L (3.5-5.5); Total Protein, Blood 7.7 g/dL (6.4-8.2)
[2024-01-06] MEDS ORDERED: Piperacillin/Tazobactam Sod 4.5 GM in NS 100 ML IV ONE (20:30)
[2024-01-06] MEDS ORDERED: Acetaminophen 325 MG TABLET PO PRN (21:25)
[2024-01-06] MEDS ORDERED: Ondansetron HCl 2 MG / ML 2ML Vial IV PRN (21:30)
[2024-01-06] MEDS ORDERED: NS 1,000 ML IV SCH (21:30)
[2024-01-06] MEDS ORDERED: Meropenem 1,000 MG in NS 100 ML IV SCH (21:40)
[2024-01-06] MEDS ORDERED: OxyCODONE HCL 5 MG TAB PO PRN (21:45)
[2024-01-06] MEDS ORDERED: Vancomycin HCL 1,750 MG in NS 500 ML IV ONE (21:50)
[2024-01-06 22:55] VITALS: BP 92/70
[2024-01-07 05:10] VITALS: BP 112/65
--- NOTE | 2024-01-07 05:26 | NUR ---
SHIFT SUMMARY PT ARRIVED FROM ED AROUND 2300. PT ORIENTED TO ROOM AND WARM BLANKETS PROVIDED. A&OX4. PT C/O OF FOOT AND BACK PAIN. MEDICATED PER EMAR. PT DENIED CP OR FEELING SOB. ON RA. AT BEDSIDE. PT STANDS INDEPENDENTLY AT BEDSIDE TO USE URINAL. BP SOFT BUT VSS. INFUSING NS @ 100ML/HR. IV ABX GIVEN PER EMAR. BED IN LOWEST POSITION AND CALL LIGHT IN REACH.
[2024-01-07] MEDS ORDERED: Pantoprazole Sodium 20 MG Tab PO SCH (06:00)
[2024-01-07 06:17] LABS: BASOPHILS ABSOLUTE AUTO 0.04 K/mm3 (0.00-0.23); BASOPHILS PERCENT AUTO 1 % (0-2); EOSINOPHILS ABSOLUTE AUTO 0.32 K/mm3 (0.00-0.68); EOSINOPHILS PERCENT AUTO 5 % (0-6); Hematocrit 26.4 % (37.0-53.0); Hemoglobin 8.4 g/dL (13.5-17.5); IMMATURE GRAN ABSOLUTE AUTO 0.03 K/mm3 (0.00-0.10); IMMATURE GRAN PERCENT AUTO 1 % (0-1); LYMPHOCYTES ABSOLUTE AUTO 1.16 K/mm3 (0.84-5.20); LYMPHOCYTES PERCENT AUTO 19 % (21-46); MONOCYTES ABSOLUTE AUTO 0.46 K/mm3 (0.16-1.47); MONOCYTES PERCENT AUTO 7 % (4-13); Mean Corpuscular HGB 32.1 pg (26.0-34.0); Mean Corpuscular HGB Conc 31.8 g/dL (31.5-36.5); Mean Corpuscular Volume 101 fL (80-100); Mean Platelet Volume 8.7 fL (9.1-12.4); NEUTROPHILS ABSOLUTE AUTO 4.23 K/mm3 (1.96-9.15); NEUTROPHILS PERCENT AUTO 68 % (41-73); Platelet Count 320 K/mm3 (150-400); RDW Coefficient Variation 12.6 % (11.7-14.2); RDW Standard Deviation 46.5 fL (35.1-46.3); Red Blood Cell Count 2.62 M/mm3 (4.30-5.90); White Blood Cell Count 6.24 K/mm3 (4.00-11.30)
[2024-01-07 07:00] LABS: Magnesium, Blood 1.6 mg/dL (1.6-2.4)
[2024-01-07 07:01] LABS: Albumin/Globulin Ratio 0.4 (0.8-1.8); Bilirubin, Total 0.4 mg/dL (0.1-1.0); Bun/Creatinine Ratio 7.6 (12.0-20.0); Calcium, Blood 8.1 mg/dL (8.5-10.1); Creatinine, Blood 0.92 mg/dL (0.60-1.20); Globulin, Blood 4.8 g/dL (2.2-4.0); Potassium, Blood 3.7 mmol/L (3.5-5.5); Total Protein, Blood 6.8 g/dL (6.4-8.2)
[2024-01-07 07:59] VITALS: BP 93/55
[2024-01-07] MEDS ORDERED: Topiramate 25 MG Tab PO SCH (09:00)
[2024-01-07] MEDS ORDERED: Vancomycin HCL 1,250 MG in NS 250 ML IV SCH (09:00)
[2024-01-07] MEDS ORDERED: Miconazole Nitrate 2% 85 GM PWD TOP SCH (09:00)
[2024-01-07] MEDS ORDERED: Apixaban 5 MG Tab PO SCH (09:00)
--- NOTE | 2024-01-07 16:29 | NUR ---
SUMMARY- PT A/O X4, ADMITTED WITH RESP ABCESS/EMPYEMA RLL. DR HERNANDEZ IN TO EVAL PT 0815, EXPLAINED PT WOULD NEED 2 WEEKS OF IV ABX. EXPLAINED NEED FOR SPUTUM CX FOR SENSITIVITY INFO. SPUTUM CX OBTAINED. PT'S LUNG DIM RLL, AREA OF CX, OTHERWISE BREATING WNL, NO SOB OF DYSPNEA. RESP UNLABORED. VSS. PT TOLERATING FOOD AND FLUIDS. CHRONIC BACK PAIN CONTROLLED WITH OXY 5MG. PT BEGAN COUGHING UP LG AMOUNTS OF DE LA CRUZ CREAMY SPUTUM AND SPIT IT ON HIS SHEETS. PT STANDS INDEPENDANTLY USES URINAL AT BEDSIDE. IN/OUT TO VISIT THROUGHOUT THE DAY. WILL REPORT TO NOC STEFANIE
[2024-01-07 16:30] VITALS: BP 108/74
[2024-01-07 19:52] VITALS: BP 104/68
[2024-01-07] MEDS ORDERED: QUEtiapine Fumarate 50 MG TAB PO SCH (21:00)
[2024-01-08 03:41] VITALS: BP 105/71
--- NOTE | 2024-01-08 06:15 | NUR ---
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 PATIENT SLEPT IN ROOM FOR THE NIGHT AND SHE SAID HE'S NOT NORMALLY THIS CONFUSE. VITALS ARE STABLE BUT TEMP WAS ELEVATED AT 100.3, TYPENOL WAS GIVEN. PATIENT COMPLAINED OF PAIN TO IV SITE AND REQUESTED FOR OXY. IV TO RIGHT AC WAS PULLED OUT AND ANOTHER IV WAS INSERTED TO THE LEFT FOREARM. PATIENT ALSO COMPLAIND OF MINIMAL ITCHING. PATIENT GETS UP WITH STAND BY ASSIST WITH A WALKER, AND USES THE URINAL AT BEDSIDE.
[2024-01-08 07:42] VITALS: BP 90/52
[2024-01-08 08:32] LABS: Hematocrit 27.8 % (37.0-53.0); Mean Corpuscular HGB 32.4 pg (26.0-34.0); Mean Corpuscular HGB Conc 32.4 g/dL (31.5-36.5); Mean Corpuscular Volume 100 fL (80-100); Mean Platelet Volume 8.5 fL (9.1-12.4); Platelet Count 324 K/mm3 (150-400); RDW Coefficient Variation 12.5 % (11.7-14.2); RDW Standard Deviation 45.8 fL (35.1-46.3); Red Blood Cell Count 2.78 M/mm3 (4.30-5.90)
[2024-01-08 08:49] LABS: Bun/Creatinine Ratio 7.6 (12.0-20.0); Calcium, Blood 8.3 mg/dL (8.5-10.1); Creatinine, Blood 0.79 mg/dL (0.60-1.20); Potassium, Blood 4.1 mmol/L (3.5-5.5)
[2024-01-08 13:43] LABS: Vancomycin, Trough 15.6 ug/mL (5.0-10.0)
[2024-01-08] MEDS ORDERED: Vancomycin HCL 1,250 MG in NS 250 ML IV SCH (14:00)
[2024-01-08 16:29] VITALS: BP 108/70
--- NOTE | 2024-01-08 18:05 | NUR ---
SHIFT SUMMARY PT AWAKE DURING SHIFT REPORT, WATCHING TV. PT THEN OOB TO USE URINAL AT BS, SETTING BED ALARM OFF. PER REPORT, PT CAN BE IMPULSIVE AND FORGETFUL AT TIMES. PT'S IN LATER THIS AM AND HAS REMAINED AT BS. PT ABLE TO D/C HOME OR TO SNF WITH CONTINUED IV ABX'S X [address] SANTILLAN AND LEGAL ADMINISTRATIVE ASSISTANT WORKING WITH PT AND TO ARRANGE. P/T IN TO SEE PT THIS AFTERNOON; SEE CHART. REDNESS TO GROIN; [place] PWD APPLIED. IVF'S INFUSING PER EMAR. MEDICATED X1 FOR C/O LBP AND L FOOT PAIN. SITTING UP EATING DINNER AT THIS TIME. CALL LT IN REACH.
[2024-01-08 19:36] VITALS: BP 110/66
[2024-01-09] MEDS ORDERED: Vancomycin HCL 1,500 MG in NS 250 ML IV SCH (02:00)
[2024-01-09 02:29] VITALS: BP 99/65
--- NOTE | 2024-01-09 05:00 | NUR ---
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 GETS ANXCIOUS AT TIMES AND IS IMPULSIVE WITH AMBULATION. IS AT BEDSIDE. LAST BP THIS MORNING IS SOFT 99/65. PLAAN IS TO BE D/C DURING DAY SHIFT AND WILL BE GOING HOME WITH IV ANTIBIOTIC THERAPY.
[2024-01-09 07:38] VITALS: BP 106/71
[2024-01-09] MEDS ORDERED: Apixaban 5 MG Tab PO SCH (09:00)
[2024-01-09] MEDS ORDERED: CIPR500 PO (13:06)
== END 2024-01-09 15:03 | disposition home or self-care (01) | DRG 177 ==
LOC: ER 18:04 → MEDS 21:24
PROVIDERS: Emergency Medicine; Internal Medicine; Nurse Practitioner Acute Care; ADMIT Internal Medicine
DX: A15.0 Tuberculosis of lung (principal); I26.99 Other pulmonary embolism without acute cor pulmonale; E87.1 Hypo-osmolality and hyponatremia; I50.22 Chronic systolic (congestive) heart failure; I42.6 Alcoholic cardiomyopathy; I76 Septic arterial embolism; F10.20 Alcohol dependence, uncomplicated; D53.9 Nutritional anemia, unspecified; E87.8 Other disorders of electrolyte and fluid balance, not elsewhere classified; G40.909 Epilepsy, unspecified, not intractable, without status epilepticus; I11.0 Hypertensive heart disease with heart failure; E86.1 Hypovolemia; E86.0 Dehydration; I95.9 Hypotension, unspecified; K21.9 Gastro-esophageal reflux disease without esophagitis; J18.9 Pneumonia, unspecified organism; R50.9 Fever, unspecified; B19.20 Unspecified viral hepatitis C without hepatic coma; Z87.19 Personal history of other diseases of the digestive system; Z98.890 Other specified postprocedural states; Z87.891 Personal history of nicotine dependence; Z88.2 Allergy status to sulfonamides; Z88.8 Allergy status to other drugs, medicaments and biological substances; Z79.899 Other long term (current) drug therapy; Z79.01 Long term (current) use of anticoagulants; Z79.891 Long term (current) use of opiate analgesic
CPT/HCPCS: 36415; 71045; 71260; 80048; 80053; 80202; 83605; 83735; 83880; 85025; 85027; 87040; 87070; 87077; 87186; 87205; 97110; 97116; 97162; 99285-25; A9270; C9113; J2185; J2543; J3370; J7030; J7040; J7050; Q9967